=== PATIENT | male | born 1950 | race Caucasian/White ===

== ENCOUNTER 2018-12-01 09:53 | Emergency (ER) | payer MEDICARE ==
--- NOTE | 2018-12-01 10:17 | ED ---
Shortness of Breath - HPI Summary HPI Summary: The patient is a 68 y/o M presenting to [facility] with a chief complaint of sudden onset SOB three days ago. He reports hx of COPD, for which he has a concentrator and nebulizer to which he used them to some relief. Since his symptoms persisted so he presented to [facility] today. There, he was given Dexamethasone 10mg and Duoneb, which improved his symptoms. He additionally c/o a productive cough with clear phlegm. He denies CP and edema. Hx of COPD and respiratory failure. Former smoker, occasional EtOH, no substance use. - History of Current Complaint Chief Complaint: EDShortnessOfBreath Time Seen by Provider: 12/01/18 10:05 Hx Obtained From: Patient Onset/Duration: Sudden Onset, Lasting Days - three, Still Present Timing: Constant Current Severity: Moderate Dyspnea At: Rest Aggravating Factors: Nothing Alleviating Factors: Bronchodilators - Dexamethasone 10mg and Duoneb (at [facility]) Associated Signs & Symptoms: Cough (Productive) - with clear phlegm - Allergy/Home Medications Allergies/Adverse Reactions: Allergies Allergy/AdvReac Type Severity Reaction Status Date / Time codeine AdvReac Vomiting Verified 12/01/18 09:56 Penicillins AdvReac Rash Verified 12/01/18 09:56 PMH/Surg Hx/FS Hx/Imm Hx Endocrine/Hematology History: Denies: Hx Diabetes Cardiovascular History: Denies: Hx Hypertension Respiratory History: Reports: Hx Chronic Obstructive Pulmonary Disease (COPD), Other Respiratory Problems/Disorders - RESPIRATORY FAILURE Musculoskeletal History: Reports: Hx Back Problems - Surgical History Surgical History: None Surgery Procedure, Year, and Place: none - Immunization History Date of Tetanus Vaccine: UNK Date of Influenza Vaccine: 06/21 Infectious Disease History: No Infectious Disease History: Denies: Traveled Outside the [place] in Last 30 Days - Family History Known Family History: Negative: Hypertension, Diabetes - Social History Hx Substance Use: No Substance Use Type: Reports: None Hx Tobacco Use: Yes Smoking Status (MU): Former Smoker Review of Systems Negative: Chest Pain Positive: Shortness Of Breath, Cough - productive with clear phlegm Negative: Edema All Other Systems Reviewed And Are Negative: Yes Physical Exam - Summary Physical Exam Summary: Appearance: Well-appearing, Well-nourished, lying in bed comfortably Skin: Warm, dry, no obvious rash Eyes: sclera anicteric, no conjunctival pallor ENT: mucous membranes moist, pharynx appears normal Neck: Supple, nontender Respiratory: Clear to auscultation, no signs of respiratory distress. Good aeration. No wheezing. Cardiovascular: Normal S1, S2. No murmurs. Normal distal pulses in tibial and radial bilaterally. Abdomen: Soft, nontender, normal active bowel sounds present Musculoskeletal: Normal, Strength/ROM Intact Neurological: A&Ox3, awake and alert, mentation is normal, speech is fluent and appropriate Psychiatric: affect is normal, does not appear anxious or depressed Triage Information Reviewed: Yes Vital Signs On Initial Exam: Initial Vitals Temp Pulse Resp BP Pulse Ox 97.9 F 90 20 180/93 94 12/01/18 09:57 12/01/18 09:57 12/01/18 09:57 12/01/18 09:57 12/01/18 09:57 Vital Signs Reviewed: Yes Diagnostics - Vital Signs Vital Signs Temp Pulse Resp BP Pulse Ox 12/01/18 09:57 97.9 F 90 20 180/93 94 - Laboratory Result Diagrams: 12/01/18 10:26 12/01/18 10:26 Lab Statement: Any lab studies that have been ordered have been reviewed, and results considered in the medical decision making process. - Radiology CXR Radiology Interpretation Completed By: Radiologist Summary of Radiographic Findings: Hyperinflation, consistent with COPD. No active cardiopulmonary disease. ED physician has reviewed this report. - EKG 1020 Cardiac Rate: NL - 86 BPM EKG Rhythm: Sinus Rhythm Summary of EKG Findings: NSR at 86 BPM, P waves, QRS complex, and T waves are within normal limits, T waves and intervals are normal, no ischemic changes. This is a normal EKG. Re-Evaluation - Re-Evaluation First Eval Re-Evaluation Time: 12:56 Change: Improved Comment: The patient's symptoms have improved. We discussed results and discharge home. Course/Dx - Course Course Of Treatment: The patient is a 68 y/o M presenting to [facility] with a chief complaint of sudden onset SOB three days ago without much relief using at-home concentrator and nebulizer for COPD. He was given Dexamethasone 10mg and Duoneb at [facility], which improved his symptoms. He additionally c/o a productive cough with clear phlegm. He denies CP and edema. Hx of COPD and respiratory failure. Former smoker, occasional EtOH, no substance use. Upon physical exam, the patient exhibits good aeration without wheezing. Blood work reveals chloride of 96 and glucose of 136. EKG reveals NSR at 86 BPM without any ischemic changes. CXR impression: Hyperinflation, consistent with COPD. No active cardiopulmonary disease. Since patients symptoms have improved, he is able to be discharged home. He is prescribed Prednisone and Azithromycin. He is diagnosed with COPD exacerbation. He agrees with discharge plan. - Diagnoses Provider Diagnoses: COPD exacerbation Discharge - Sign-Out/Discharge Documenting (check all that apply): Patient Departure - Patient will be discharged home. Patient Received Moderate/Deep Sedation with Procedure: No - Discharge Plan Condition: Good Disposition: HOME Prescriptions: Azithromycin TAB* [Zithromax TAB (Z-MIGUEL ÁNGEL) 250 mg #6 tabs] 2 tab PO .TODAY, THEN 1 DAILY #1 miguel ángel predniSONE TAB* [Deltasone 20 MG TAB*] 40 mg PO DAILY #14 tab Patient Education Materials: COPD (Chronic Obstructive Pulmonary Disease) (ED) Referrals: Miryam Mott MD [Primary Care Provider] - 3 Days Additional Instructions: Follow up with your primary care provider in 2-3 days. RETURN TO THE EMERGENCY DEPARTMENT FOR ANY NEW OR WORSENING SYMPTOMS. - Billing Disposition and Condition Condition: GOOD Disposition: Home - Attestation Statements Document Initiated by Chloé: Yes Documenting Scribe: Harriet Isabel Provider For Whom Chloé is Documenting (Include Credential): Dr. Bryon Nath MD Scribe Attestation: Harriet Carcamo scribed for Dr. Bryon Nath MD on 12/04/18 at 0416. Scribe Documentation Reviewed: Yes Provider Attestation: The documentation as recorded by the Harriet joseph accurately reflects the service I personally performed and the decisions made by me, Dr. Bryon Nath MD Status of Scrdorothy Document: Viewed
[2018-12-01 10:40] LABS: ABS Eosinophils 0.3 10^3/ul (0-0.6); ABS Monocytes 0.5 10^3/ul (0-0.8); ABS Neutrophils 5.1 10^3/ul (1.5-7.7); Eosinophil % 3.7 %; Hematocrit 48 % (42-52); Lymphocyte % 14.7 %; Mean Corpuscular HGB Conc 34 g/dL (31-36); Mean Corpuscular Hemoglobin 31 pg (27-31); Mean Corpuscular Volume 93 fL (80-94); Mean Platelet Volume 8.2 fL (7.4-10.4); Nucleated Red Blood Cells % 0.1; Platelet Count 209 10^3/uL (150-450); Red Cell Distribution Width 13 % (10-15); White Blood Count 6.9 10^3/uL (3.5-10.8)
[2018-12-01 11:03] LABS: Albumin 4.7 g/dL (3.2-5.2); Albumin/Globulin Ratio 1.6 (1-3); BUN/Creatinine Ratio 12.6 (8-20); EGFR African American 105.3 (>60); Potassium 4.1 mmol/L (3.5-5.0); Total Bilirubin 0.5 mg/dL (0.2-1.0); Total Protein 7.7 g/dL (6.4-8.9)
[2018-12-01 12:42] VITALS: BP 150/77
== END 2018-12-01 13:02 | disposition home or self-care (01) ==
LOC: ED 09:53
DX: J44.1 Chronic obstructive pulmonary disease with (acute) exacerbation (principal); Z87.891 Personal history of nicotine dependence
CPT/HCPCS: 36415; 71046; 80053; 84484; 85025; 93005; 99283

== ENCOUNTER 2019-03-10 18:24 | Observation (INO) | payer MEDICARE ==
[2019-03-10] MEDS ORDERED: predniSONE TAB* 20 MG PO ONE (19:09)
[2019-03-10] MEDS ORDERED: Albuterol/Ipratropium NEB.SOL* Albuterol 2.5 MG/Ipratropium 0.5 MG 3 ML INH ONE ×2 (19:09→20:13)
[2019-03-10 19:47] LABS: ABS Basophils 0.1 10^3/ul (0-0.2); ABS Eosinophils 0.7 10^3/ul (0-0.6); ABS Lymphocytes 1.3 10^3/ul (1.0-4.8); ABS Monocytes 0.6 10^3/ul (0-0.8); ABS Neutrophils 3.7 10^3/ul (1.5-7.7); Eosinophil % 10.8 %; Hematocrit 43 % (42-52); Hemoglobin 14.5 g/dL (14.0-18.0); Lymphocyte % 21.3 %; Mean Corpuscular HGB Conc 34 g/dL (31-36); Mean Corpuscular Hemoglobin 33 pg (27-31); Mean Corpuscular Volume 96 fL (80-94); Mean Platelet Volume 7.7 fL (7.4-10.4); Platelet Count 261 10^3/uL (150-450); Red Blood Count 4.46 10^6 /uL (4.18-5.48); Red Cell Distribution Width 14 % (10-15); White Blood Count 6.3 10^3/uL (3.5-10.8)
--- NOTE | 2019-03-10 19:49 | ED ---
Shortness of Breath - HPI Summary HPI Summary: Pt is a 68 y/o M presenting to the ED with a chief complaint of shortness of breath. He states he has COPD, is on 2L O2 at home, and has nebulizer tx, but nothing was alleviating it today. He reports nonproductive cough and chest pain with the SOB that worsens on lying down. He denies fever. - History of Current Complaint Chief Complaint: EDShortnessOfBreath Time Seen by Provider: 03/10/19 19:01 Hx Obtained From: Patient Onset/Duration: Sudden Onset, Lasting Hours, Still Present Timing: Constant Current Severity: Moderate Dyspnea At: Other Aggravating Factors: Other - lying down Alleviating Factors: Nothing Associated Signs & Symptoms: Cough (Nonproductive) - Allergy/Home Medications Allergies/Adverse Reactions: Allergies Allergy/AdvReac Type Severity Reaction Status Date / Time codeine AdvReac Vomiting Verified 03/10/19 19:08 Penicillins AdvReac Rash Verified 03/10/19 19:08 PMH/Surg Hx/FS Hx/Imm Hx Previously Healthy: Yes Endocrine/Hematology History: Denies: Hx Diabetes Cardiovascular History: Denies: Hx Congestive Heart Failure, Hx Hypertension Respiratory History: Reports: Hx Chronic Obstructive Pulmonary Disease (COPD), Other Respiratory Problems/Disorders - RESPIRATORY FAILURE Musculoskeletal History: Reports: Hx Back Problems - Surgical History Surgery Procedure, Year, and Place: none - Immunization History Date of Tetanus Vaccine: UNK Date of Influenza Vaccine: 06/21 Infectious Disease History: No Infectious Disease History: Denies: Traveled Outside the [place] in Last 30 Days - Family History Known Family History: Negative: Hypertension, Diabetes - Social History Alcohol Use: Daily Hx Substance Use: No Substance Use Type: Reports: None Hx Tobacco Use: Yes Smoking Status (MU): Former Smoker Review of Systems Negative: Fever Positive: Chest Pain Positive: Shortness Of Breath, Cough All Other Systems Reviewed And Are Negative: Yes Physical Exam - Summary Physical Exam Summary: Constitutional: Well-developed, Well-nourished, Alert. (-) Distressed. Speaking in full sentences. Skin: Warm, Dry HENT: Normocephalic; Atraumatic Eyes: Conjunctiva normal Neck: Musculoskeletal ROM normal neck. (-) JVD, (-) Stridor, (-) Tracheal deviation Cardio: Rhythm regular, rate normal, Heart sounds normal; Intact distal pulses; Radial pulses are 2+ and symmetric. (-) Murmur Pulmonary/Chest wall: Decreased air entry in all lung g[place], expiratory wheezes , (-) Rales Abd: Soft, (-) tenderness, (-) Distension, (-) Guarding, (-) Rebound Musculoskeletal: (-) Edema Lymph: (-) Cervical adenopathy Neuro: Alert, Oriented x3 Psych: Mood and affect Normal Triage Information Reviewed: Yes Vital Signs On Initial Exam: Initial Vitals Temp Pulse Resp BP Pulse Ox 98.7 F 120 18 165/102 92 03/10/19 18:26 03/10/19 18:26 03/10/19 18:26 03/10/19 18:26 03/10/19 18:26 Vital Signs Reviewed: Yes Procedures - Sedation Patient Received Moderate/Deep Sedation with Procedure: No Diagnostics - Vital Signs Vital Signs Temp Pulse Resp BP Pulse Ox 03/10/19 18:26 98.7 F 120 18 165/102 92 - Laboratory Result Diagrams: 03/10/19 19:38 03/10/19 19:38 Lab Statement: Any lab studies that have been ordered have been reviewed, and results considered in the medical decision making process. - Radiology CXR Radiology Interpretation Completed By: ED Physician Summary of Radiographic Findings: CXR shows hyperinflated lungs without infiltrate. Pending official radiology report. - CT Chest/Thorax CTA CT Interpretation Completed By: Radiologist Summary of CT Findings: 1. No pulmonary emboli. 2. Mild emphysema. ED physician has reviewed this report. - EKG 1904 Cardiac Rate: Tachycardia - 110bpm EKG Rhythm: Sinus Tachycardia ST Segment: Normal Ectopy: None Summary of EKG Findings: EKG at 1904 shows sinus tachycardia at 110bpm with nml axis, nml intervals. No STEMI. Course/Dx - Course Course Of Treatment: Patient is here with a COPD exacerbation. Patient received 2 DuoNeb, 2 g of IV magnesium, and an hour-long albuterol nebulizer treatment with minimal improvement in his symptoms. Patient had an elevated troponin which she's had in the past with no EKG changes. Patient had negative CTA for PE. Patient is admitted to medicine for further management of his COPD and troponin. Patient was also given azithromycin and prednisone here. - Diagnoses Provider Diagnoses: Elevated troponin, Shortness of breath, COPD exacerbation - Physician Notifications Discussed Care of Patient With: Keith Lewis Time Discussed With Above Provider: 22:24 Instructed by Provider To: Admit As Inpatient - Critical Care Time Critical Care Time: 30-74 min Discharge ED - Sign-Out/Discharge Documenting (check all that apply): Patient Departure - Discharge Plan Condition: Stable Disposition: ADMITTED TO [facility] Referrals: Miryam Mott MD [Primary Care Provider] - - Billing Disposition and Condition Condition: STABLE Disposition: Admitted to [facility] - Attestation Statements Document Initiated by Scribe: Yes Documenting Scribe: Mikala Hahn Provider For Whom Beckieibe is Documenting (Include Credential): Mehul Joiner MD. Scribe Attestation: Mikala Carcamo, michaeled for Mehul Joiner MD. on 03/11/19 at 0020. Scribe Documentation Reviewed: Yes Provider Attestation: The documentation as recorded by the beckieibe, Mikala Hahn accurately reflects the service I personally performed and the decisions made by , Mehul Joiner MD. Status of Scribe Document: Viewed
[2019-03-10 20:05] LABS: ALT 14 U/L (7-52); AST 21 U/L (13-39); Albumin 4.3 g/dL (3.2-5.2); Albumin/Globulin Ratio 1.7 (1-3); Alkaline Phosphatase 67 U/L (34-104); Anion Gap 8 mmol/L (2-11); BUN/Creatinine Ratio 6.4 (8-20); Blood Urea Nitrogen 5 mg/dL (6-24); CO2 Carbon Dioxide 27 mmol/L (22-32); Calcium 9.4 mg/dL (8.6-10.3); Chloride 102 mmol/L (101-111); EGFR African American 119.4 (>60); EGFR Non-African American 98.7 (>60); Globulin 2.6 g/dL (2-4); Glucose 121 mg/dL (70-100); Potassium 4.1 mmol/L (3.5-5.0); Sodium 137 mmol/L (135-145); Total Protein 6.9 g/dL (6.4-8.9)
[2019-03-10 20:10] LABS: Troponin I 0.06 ng/mL (<0.04)
[2019-03-10] MEDS ORDERED: Iohexol 350* (CONTRAST) 500 ML MDV IV ONE (20:18)
[2019-03-10] MEDS ORDERED: Azithromycin 500 mg/250 ml NS 500 MG/250 ML BAG IVPB ONE (21:10)
[2019-03-10] MEDS ORDERED: Albuterol 0.5% CONC NEB.SOL* 5 MG/ML 20 ml BOT INH ONE (21:28)
[2019-03-10] MEDS ORDERED: Magnesium Sulfate 2 GM IV* 2 GM/50 ML BAG IVPB ONE (21:32)
[2019-03-10] MEDS ORDERED: Aspirin 81 mg CHEW TAB* 81 MG TAB.CHEW PO ONE (22:06)
[2019-03-10 22:25] LABS: Troponin I 0.07 ng/mL (<0.04)
[2019-03-11] MEDS ORDERED: Ipratropium 0.5MG/2.5ML NEB* 0.5 MG/2.5 ML NEB.SOLN INH PRN (04:14)
[2019-03-11] MEDS ORDERED: Albuterol 2.5 MG/3 ML NEB.SOL* (0.083%) INH PRN (04:14)
[2019-03-11 04:29] LABS: Troponin I 0.04 ng/mL (<0.04)
[2019-03-11] MEDS: Enoxaparin(*) 40 MG/0.4 ML SYR SUBCUT SCH (05:15)
[2019-03-11 06:40] LABS: ABS Lymphocytes 0.6 10^3/ul (1.0-4.8); ABS Monocytes 0.3 10^3/ul (0-0.8); ABS Neutrophils 4.4 10^3/ul (1.5-7.7); Hematocrit 40 % (42-52); Hemoglobin 13.8 g/dL (14.0-18.0); Lymphocyte % 11.9 %; Mean Corpuscular HGB Conc 34 g/dL (31-36); Mean Corpuscular Hemoglobin 33 pg (27-31); Mean Corpuscular Volume 96 fL (80-94); Mean Platelet Volume 7.8 fL (7.4-10.4); Nucleated Red Blood Cells % 0.1; Platelet Count 238 10^3/uL (150-450); Red Blood Count 4.21 10^6 /uL (4.18-5.48); Red Cell Distribution Width 14 % (10-15); White Blood Count 5.3 10^3/uL (3.5-10.8)
[2019-03-11 06:58] LABS: BUN/Creatinine Ratio 10.4 (8-20); Calcium 9.1 mg/dL (8.6-10.3); EGFR African American 121.2 (>60); EGFR Non-African American 100.2 (>60); HDL Cholesterol 70.8 mg/dL; Potassium 4.6 mmol/L (3.5-5.0)
[2019-03-11] MEDS: Mometasone/Formoter 200/5 MDI INH SCH ×2 (08:52→20:18)
[2019-03-11] MEDS: Carvedilol TAB* 6.25 MG PO SCH ×2 (08:53→20:53)
[2019-03-11] MEDS: Aspirin EC TAB* 81 MG TAB.EC PO SCH (08:53)
[2019-03-11] MEDS: Atorvastatin* 40 MG TAB PO SCH (08:53)
[2019-03-11] MEDS ORDERED: predniSONE TAB* 20 MG PO SCH (09:00)
--- NOTE | 2019-03-11 10:56 | HP ---
CC: Dr. Miryam Mott ADMISSION HISTORY AND PHYSICAL: DATE OF ADMISSION: 03/11/19 PRIMARY CARE PHYSICIAN: Miryam Mott MD TEARER PRESS CLIPPING: Imelda Haq NP CHIEF COMPLAINT: Shortness of breath. HISTORY OF PRESENT ILLNESS: This is a 68-year-old male with past medical history of COPD; history of alcohol abuse, but cut down quite drastically; history of intubation in 2009 and 2012 for his respir atory failure, which he says was possibly even a cardiac arrest, but it sounds more like a respirator y arrest; history of nonischemic cardiomyopathy with low EF of 20% based on an echocardiogram from 28 05; comes in with shortness of breath and cough. The patient stated that he was in his usual state o f health up until yesterday, he had a coughing spell and he was using his nebulizer machine, but stil l felt very short of breath, so he came into the ER for treatment of his COPD. He states that usuall y he just gets his treatment for COPD in the ER and usually gets better. Even today, he feels that h e is back to his baseline; however, he did have minimally elevated troponin, so the ER physician ted mmended him to stay for evaluation by a tax specialist. He otherwise denies any chest pain at this poi nt, stated that he did have some chest pain, but only from coughing; otherwise had some shortness of breath, which was his chief complaint, which was worse with lying down or any activity. He was havin g some dry cough, stated that it feels like there is something stuck in his chest. Denies any other fever, chills, nausea, vomiting, diarrhea. PAST MEDICAL HISTORY: As mentioned, COPD, on 2 L nasal cannula, also has a nebulizer machine at home , but has been noncompliant with his Symbicort as it is way too expensive for him. He has also had i ntubations in 2009 and 2012 for respiratory failure, possibly even a cardiac arrest in 2009. He also has a history of hypertension; hyperlipidemia, for which he takes medication; previous history of al cohol abuse and smoking and vaping. He has stopped completely with the smoking and vaping; however, he still drinks on a routine basis about 2 to 4 beers, which he initially states was daily. He has a lso had a cardiomyopathy with a previous EF documented in the chart of 20% and stated that he had an echocardiogram done in November of this year at the tax specialist office; however, I am unable to obtain jacey jimenez records. PAST SURGICAL HISTORY: He has had lower back surgery and cardiac catheterization, which were apparen tly normal. HOME MEDICATIONS: The patient is currently on: 1. Carvedilol 6.25 mg p.o. b.i.d. 2. Crestor 20 mg p.o. daily. 3. Atrovent 0.5 mg by inhalation q.4 hours p.r.n. 4. Albuterol q.6 hours p.r.n. shortness of breath. 5. Symbicort 2 puffs by inhalation b.i.d.; however, he is not compliant with this. 6. Aspirin 81 mg oral daily. ALLERGIES: The patient is allergic to PENICILLIN and CODEINE, which cause unknown reaction. FAMILY HISTORY: Noncontributory at his age of 68. SOCIAL HISTORY: He has had over [id number] history of smoking, followed by a few- year history of vaping, followed by history of drinking almost 6 pack of beers a day, but the patient has stopped smo hammad for roughly 10 years, vaping for roughly 7 to 8 years, and cut down his alcohol use to intermitt ently about 2 to 4 beers a day or every other day. He states that there are days that he does not dr ink alcohol at all. 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 He lives alone. He is otherwise full cod e and stated that Alejandrina, his daughter, would be his surrogate decision-maker if necessary. REVIEW OF SYSTEMS: A 14-point review of systems did not reveal any new information other than the on es stated in the HPI. PHYSICAL EXAMINATION GENERAL: The patient is awake, alert and oriented x3, does not appear to be in any acute respiratory distress. VITAL SIGNS: In the ER, BP was noted to be 136/60, heart rate 104, respiration rate 18, saturating 9 7% on 2 L nasal cannula, temperature was noted to be 98.7. HEAD AND NECK: Atraumatic and normocephalic. Bilateral pupils are reactive. Oral mucosa was moist. NECK: Supple. No jugular venous distention. LUNGS: The patient had diffuse wheezing. HEART: S1, S2. Regular rate and rhythm. ABDOMEN: Soft, nontender, and nondistended. EXTREMITIES: No cyanosis, clubbing, or edema. DIAGNOSTIC STUDIES/LAB DATA: CBC was within normal limits. VBG shows pH of 7.40 and oxygen saturat ion of 87%. Comprehensive metabolic panel was unremarkable except for minimally elevated troponin at 0.06, which was repeated again and was elevated at 0.07. CTA of the chest was showing no pulmonary emboli, mild emphysema; and the heart, there is mild atherosclerotic calcification of the coronaries. EKG showed sinus tachycardia at 110 beats per minute without any ST elevation. There is some ST de pression in the lead aVF and some T-wave inversion in aVL. When compared to his older EKG from November 2018, there was no significant change between the two except for his heart rate was much lower back t hen. IMPRESSION: This is a 68-year-old male with history of nonischemic cardiomyopathy, comes in with clover rtness of breath secondary to chronic obstructive pulmonary disease exacerbation, clinically improved , but still has minimally elevated troponin. ASSESSMENT: 1. Hypoxic respiratory failure secondary to chronic obstructive pulmonary disease exacerbation, impr raymond with steroids. We will continue with oral steroids and nebulization. 2. Elevated troponin. The patient did recently have an echocardiogram, so there is no point in repe ating. We will consult tax specialist to evaluate the patient and see if the patient would benefit fro m any stress test versus cardiac cath. He did state that his previous cardiac cath was always clean. We will also see if we can obtain records from cardiology clinic for further details. 3. History of hypertension. Restart home medications. We will try to titrate his antihypertensives during this hospitalization. 4. History of dyslipidemia. Check a lipid panel. We will also check an A1c as he has some elevated random glucose. 5. DVT prophylaxis with Lovenox. 6. Code status. Full code. [id number]/[facility] #: [id number]
[2019-03-11] MEDS ORDERED: Benzonatate CAP* 100 MG PO PRN (11:13)
[2019-03-11] MEDS: Albuterol/Ipratropium NEB.SOL* Albuterol 2.5 MG/Ipratropium 0.5 MG 3 ML INH SCH ×3 (11:16→20:18)
--- NOTE | 2019-03-11 12:20 | CONS ---
CC: Imelda Haq NP; Dr. Irby; Dr. Miryam Mott CARDIOLOGY CONSULTATION: DATE OF CONSULT: 03/11/19 REFERRING PHYSICIAN: Dr. Keith Lewis. REASON FOR CARDIOLOGY CONSULTATION: Shortness of breath and elevated troponin. HISTORY OF PRESENT ILLNESS: Mr. Gonzalez is a 68-year-old gentleman admitted to the hospital last night with COPD exacerbation. He was found to have elevated troponin to 0.07 with followup troponin 0.04, 0.03, and 0.03. He himself denies angina and states he is feeling back to normal now since treatment for his COPD. Past cardiac history is unknown, but he does follow with Ms. Haq in our office. The patient denies prior cardiac surgery or stent. The patient states he saw Ms. Haq in our office in December 2018. PAST MEDICAL HISTORY: Other past medical history includes COPD, hyperlipidemia. OUTPATIENT MEDICATIONS: 1. Lipitor 40 mg once a day. 2. Coreg 6.25 mg p.o. b.i.d. 3. Prednisone as directed. ALLERGIES TO MEDICATIONS: PENICILLIN and CODEINE. He denies shrimp, sea food or dye allergy. FAMILY HISTORY: Denies prior cardiac disease, stroke, diabetes, or cancer. SOCIAL HISTORY: He quit smoking cigarettes in September 2018 after having smoked for 50 years 1 pack per day or less. He drank 3 to 4 cans of beer per night, but has stopped drinking beer for the past 2 months. He does not use illicit drugs. He is single and lives alone. 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 He does try to stay active walking [place] and riding his bicycle. REVIEW OF SYSTEMS: The patient denies personal history of stroke, cancer, vomiting up blood, coughing up blood, bright red blood per rectum, bleeding stomach ulcers, renal calculi, cholelithiasis, asthma. He has COPD and uses home O2 p.r.n. He denies pneumonia, tuberculosis, sleep apnea, diabetes, hypertension, prior [place], congestive heart failure, or cardiac surgery. He was told he had a heart murmur as a child. He denies palpitations, denies psychiatric illnesses, lupus, psoriasis, seizures, Parkinson's disease, myasthenia gravis, thyroid disorders, liver disorders, kidney disorders, claudication symptoms. He does have occasional GERD depending on what he eats. He denies pulmonary emboli, deep venous thrombosis, or peripheral arterial disease. Denies peripheral edema. Other review of systems are negative x14 except as per this documentation. PHYSICAL EXAM: Height 5 feet 10 inches, weight 131 pounds, temperature 97.7 degrees Fahrenheit, pulses ranging from 98 to 112, O2 saturation 96% to 100%, blood pressure 153/69. On general exam, he is a pleasant, emphysematous- appearing gentleman in no acute distress. HEENT shows the cranium is normocephalic and atraumatic. He has dry mucosal membranes. Neck veins are not distended. There are no carotid bruits. Visible skin warm and perfused. Affect appropriate. He appears oriented. No significant kyphoscoliosis on back exam. Lungs reveal occasional rhonchi bilaterally. No clear wheezing. Cardiac Exam: S1, S2. Regular rate. No significant murmurs, rubs, or gallops. PMI is nondisplaced. Abdomen: Soft and nondistended, appears benign. Extremities without significant edema. Pulses appear grossly intact. DIAGNOSTIC STUDIES/LAB DATA: A 12-lead EKG is reviewed, which shows sinus tachycardia around 10 beats a minute with left anterior fascicular block. RSR prime in V1 and nonspecific T wave changes in the anterolateral leads. Sodium 138, potassium 4.6, chloride 102, bicarbonate 28, BUN 8, creatinine 0.77. Troponin 0.07, followed by 0.04, followed by 0.03, followed by 0.03. White blood cell count 5.3, hematocrit 40, platelet count 238. IMPRESSION: Mr. Gonzalez is a pleasant 68-year-old gentleman admitted with chronic obstructive pulmonary disease exacerbation and found to have minimal troponin elevation with no findings of acute coronary syndrome including no angina. Currently, he is feeling better and there is some rhonchi noted on exam. RECOMMENDATIONS: 1. I think it is reasonable for now to check transthoracic echocardiogram, and if LV function preserved, can discharge the patient cardiac-sotelo on home aspirin , statin, and Coreg and early followup with our office with his [facility], Imelda Haq for consideration of outpatient stress test. 2. Other management including for the COPD as per the hospitalist medicine service. Dear Dr. Lewis, many thanks for asking me to participate in the cardiovascular consultative care of Mr. Gonzalez. I have discussed the case with him and he seems agreeable to these recommendations. Please do not hesitate to contact me if you have any questions or concerns regarding the patient's cardiovascular consultative care. [id number]/[facility] #: [id number] ISAMAR
--- NOTE | 2019-03-11 18:48 | PN ---
Subjective Date of Service: 03/11/19 Interval History: SOB improved with nebulizer treatment. Non productive cough heard. No fever. chills overnight. Objective Active Medications: Albuterol/Ipratropium (Duoneb (Albuterol 2.5 Mg/Ipratropium 0.5 Mg)) 1 neb INH Q4H [facility] Last Admin: 03/11/19 14:34 Dose: 1 neb Aspirin (Aspirin Ec Tab*) 81 mg PO DAILY [facility] Last Admin: 03/11/19 08:53 Dose: 81 mg Atorvastatin Calcium (Lipitor*) 40 mg PO DAILY [facility] Last Admin: 03/11/19 08:53 Dose: 40 mg Benzonatate (Tessalon Cap*) 100 mg PO BID PRN PRN Reason: SHORTNESS OF BREATH Last Admin: 03/11/19 13:38 Dose: 100 mg Carvedilol (Coreg Tab*) 6.25 mg PO BID [facility] Last Admin: 03/11/19 08:53 Dose: 6.25 mg Enoxaparin Sodium (Lovenox(*)) 40 mg SUBCUT 0900 [facility] Last Admin: 03/11/19 05:15 Dose: 40 mg Mometasone Furoate/Formoterol Fumar (Dulera 200/5 Mdi*) 2 puff INH BID [facility]; Protocol Last Admin: 03/11/19 08:52 Dose: 2 puff Prednisone (Deltasone Tab*) 40 mg PO DAILY [facility] Stop: 03/15/19 08:59 Vital Signs - 8 hr 03/11/19 03/11/19 03/11/19 11:11 14:37 15:15 Temperature 98.4 F 97.8 F Pulse Rate 99 102 96 Respiratory 16 16 18 Rate Blood Pressure 153/69 133/55 (mmHg) O2 Sat by Pulse 99 98 94 Oximetry Oxygen Devices in Use Now: Nasal Cannula Exam: Appearance: not in acute distress, but appears uncomfortable Eyes: No Scleral Icterus Ears/Nose/Mouth/Throat: NL Teeth, Lips, Gums Neck: NL Appearance and Movements; NL JVP Respiratory: diffuse wheezing sound over lung, no crackles heard Cardiovascular: RRR, no murmur Abdominal: soft, non tender Lymphatic: No Cervical Adenopathy Extremities: No Edema Result Diagrams: 03/11/19 06:29 03/11/19 06:29 Assess/Plan/Problems-Billing Assessment: 68 y/o male with history of cardiomyopathy, COPD on 2L O2, presented with worsening SOB for 3 days, with clear CXR and no leukocytosis, likely COPD exacerbation. - Patient Problems (1) COPD exacerbation Current Visit: Yes Status: Acute Code(s): J44.1 - CHRONIC OBSTRUCTIVE PULMONARY DISEASE W (ACUTE) EXACERBATION SNOMED Code(s): 368737468 Comment: - evidenced by O2 requirement and wheezing sound, no obvious infection found - pred 40mg for 3 days - continue nebulizer - walk patient today, check O2 during ambulation (2) Elevated troponin Current Visit: Yes Status: Acute Code(s): R74.8 - ABNORMAL LEVELS OF OTHER SERUM ENZYMES SNOMED Code(s): 013153521 Comment: - peaked yesterday at 0.07 - EKG new T wave inversion V1-V3 - appreciate cardiology consult - repeat ekg today - not likely ACS (3) Cardiomyopathy Current Visit: Yes Status: Acute Code(s): I42.9 - CARDIOMYOPATHY, UNSPECIFIED SNOMED Code(s): 74561923 Comment: - not CHF excerbation, BNp normal - echo record in Jul, 2018, EF 50-55%, no WMA - outpatient follow up (4) DVT prophylaxis Current Visit: Yes Status: Acute Code(s): Z29.9 - ENCOUNTER FOR PROPHYLACTIC MEASURES, UNSPECIFIED SNOMED Code(s): 979312226 Comment: sc lovenox Status and Disposition: Inpatient Medicine. Discharge if O2 requirement back to baseline Attestation Documenting Resident: Joselin Chen Supervising Physician: Jorge L Mott Attending/Supervising Physician Comment: Agree with plan as outlined in Dr. Oliver note from today unless indicated here. 65M h/o COPD a/w SOB improving on steroids. Repeat TTE in 07/2018 with recovered LVEF 50-55% EKG with TWI on presentation now resolved with normalized troponin suspected type II NSTEMI SOB improving - suspect COPD exacerbation Attestation: This service has been performed in part by a resident under the direction of a teaching physician.I, Jorge L oMtt, performed the service, or was physically present during the critical, or ribeiro portions of the service, furnished by the resident. I participated in the management of the patient.
[2019-03-11] MEDS ORDERED: Albuterol/Ipratropium NEB.SOL* Albuterol 2.5 MG/Ipratropium 0.5 MG 3 ML INH PRN (20:25)
[2019-03-12] MEDS: Albuterol/Ipratropium NEB.SOL* Albuterol 2.5 MG/Ipratropium 0.5 MG 3 ML INH SCH ×3 (01:35→13:44)
[2019-03-12] MEDS: Mometasone/Formoter 200/5 MDI INH SCH (08:23)
[2019-03-12] MEDS ORDERED: predniSONE TAB* 20 MG PO SCH (09:00)
[2019-03-12] MEDS ORDERED: guaiFENesin ER TAB 600 MG PO SCH (09:00)
--- NOTE | 2019-03-12 09:01 | PN ---
Hospitalist Progress Note Date of Service: 03/12/19 Pt had runny nose and cough (like it usually is). SOB back to normal. waiting for echo (wants to leave before 11am) no overnight virals- 97.5 heart-91 resp-22 o2 sat-98 on 2 o2 flow rate (8:26) BP-152/66 no new labs
[2019-03-12] MEDS: Enoxaparin(*) 40 MG/0.4 ML SYR SUBCUT SCH (10:44)
[2019-03-12] MEDS: Atorvastatin* 40 MG TAB PO SCH (10:44)
[2019-03-12] MEDS: Carvedilol TAB* 6.25 MG PO SCH (10:44)
[2019-03-12] MEDS: Aspirin EC TAB* 81 MG TAB.EC PO SCH (10:44)
[2019-03-12 13:33] VITALS: BP 137/59
--- NOTE | 2019-03-13 01:01 | DS ---
CC: Dr. Miryam Mott, [facility] * DISCHARGE SUMMARY: DATE OF ADMISSION: 03/11/19 DATE OF DISCHARGE: 03/12/19 DISPOSITION ON DISCHARGE: Home. CONDITION ON DISCHARGE: Good. PRIMARY DIAGNOSES: 1. COPD exacerbation. 2. Prediabetes. SECONDARY DIAGNOSES: Include: 1. Hypertension. 2. Hyperlipidemia. 3. History of alcohol abuse and tobacco abuse. 4. History of cardiomyopathy. 5. Heart failure with preserved ejection fraction. Last known EF in July 2018 is 50%. MEDICATIONS ON DISCHARGE: 1. Carvedilol 6.25 mg twice daily. 2. Rosuvastatin 20 mg daily. 3. Atrovent 0.5 mg inhaled every 4 hours as needed. 4. Symbicort 160/4.5 two puffs twice daily. 5. Aspirin 81 mg daily. 6. Albuterol 2.5 mg inhaled every 6 hours as needed. 7. Prednisone 50 mg daily for 3 additional days. 8. Guaifenesin. PERTINENT IMAGING STUDIES DURING THE HOSPITAL STAY: CT of the chest and thorax , impression: No pulmonary emboli. Mild emphysema. PERTINENT LABORATORY DATA: Includes: 1. Cholesterol of 201, LDL of 122, HDL of 70, which is fasting. 2. Hemoglobin A1c is 5.8. HISTORY OF PRESENT ILLNESS AND HOSPITAL COURSE: This is a 68-year-old man with past medical history of COPD, uses 2 L at rest; but not when ambulating, presented to the hospital with increased cough and shortness of breath, thought to be suffering from a COPD exacerbation and was started on IV steroids in the emergency room, transitioned to oral steroids, and quickly improved. On the day of discharge, he ambulated around the unit without oxygen and maintained 96 % saturation. He does not likely need oxygen at rest or with ambulation based on our ambulatory test during this hospital stay. There were no complications during this course of the hospital stay. The patient indicates that he does not drink heavily, only up to 2 glasses of wine per day, although some conflicting records do indicate his drinking up to 6 beers per day; he heavily declines and denies this. The patient was noted to have an elevated troponin at 0.07 on the day of presentation, which trended down. He was always chest pain free. EKG did note T-wave inversion in V2 and biphasic T waves in V3 that were new from prior; repeat normalized the day after admission. At followup, please: 1. Encouraged diet and exercise and/or initiation of medication for prediabetes. 2. Continue to encourage smoking cessation; the patient is not actively smoking or vaping according to the patient, as well as alcohol cessation. 3. Evaluate for complete resolution of COPD exacerbation after finishing course of steroids. On the day of discharge, the patient's lungs were clear, although did have diminished breath sounds throughout and was on room air when ambulating at 96% saturation. Reasons to return to the hospital including but not limited to recurrent or worsening symptoms, shortness of breath, chest pain, fevers, chills, night sweats, loss of consciousness, near loss of consciousness, bleeding from any source, or inability to obtain or tolerate medication were discussed with the patient. He acknowledged understanding. TIME SPENT: Greater than 45 minutes was spent on the discharge of this patient , greater than half was spent [id number] with the patient. [id number]/CPS #: [id number] MTDD
== END 2019-03-12 16:20 | disposition home or self-care (01) ==
LOC: ED 18:24 → MEDTELE 03-11 04:09
PROVIDERS: ADMIT Internal Medicine; ATTEND Internal Medicine
DX: J44.1 Chronic obstructive pulmonary disease with (acute) exacerbation (principal); R73.03 Prediabetes; E78.5 Hyperlipidemia, unspecified; I11.0 Hypertensive heart disease with heart failure; I50.30 Unspecified diastolic (congestive) heart failure; R06.02 Shortness of breath; R05 Cough; Z88.0 Allergy status to penicillin; Z87.891 Personal history of nicotine dependence; F10.21 Alcohol dependence, in remission; R07.9 Chest pain, unspecified; R74.8 Abnormal levels of other serum enzymes; I42.9 Cardiomyopathy, unspecified; Z79.899 Other long term (current) drug therapy; R94.31 Abnormal electrocardiogram [ECG] [EKG]; Z79.82 Long term (current) use of aspirin
CPT/HCPCS: 36415; 71045; 71275; 80048; 80053; 80061; 82803; 83036; 83880; 84484; 85025; 93005; 94640; 96365; 96372; 96375; 99285; A9270-GY; G0378; J0456; J1650; J3475; J7512; J7611; Q9967

== ENCOUNTER 2019-04-05 00:24 | Inpatient (IN) | payer MEDICARE ==
[2019-04-05] MEDS ORDERED: Propofol* 100 ML IV ONE (00:25)
[2019-04-05] MEDS ORDERED: NS 0.9% 1000 ML** 1,000 ML IV ONE ×2 (00:26→02:51)
[2019-04-05] MEDS ORDERED: Albuterol/Ipratropium NEB.SOL* Albuterol 2.5 MG/Ipratropium 0.5 MG 3 ML INH ONE ×3 (00:41→00:42)
[2019-04-05] MEDS ORDERED: methylPREDNISolone 125 MG* 2 ML VIAL IV ONE (00:42)
[2019-04-05 00:44] LABS: ABS Basophils 0.1 10^3/ul (0-0.2); ABS Eosinophils 0.5 10^3/ul (0-0.6); ABS Monocytes 0.4 10^3/ul (0-0.8); ABS Neutrophils 6.7 10^3/ul (1.5-7.7); Eosinophil % 5.6 %; Hematocrit 41 % (42-52); Hemoglobin 13.6 g/dL (14.0-18.0); Mean Corpuscular HGB Conc 33 g/dL (31-36); Mean Corpuscular Hemoglobin 32 pg (27-31); Mean Corpuscular Volume 98 fL (80-94); Mean Platelet Volume 8.3 fL (7.4-10.4); Platelet Count 235 10^3/uL (150-450); Red Blood Count 4.22 10^6 /uL (4.18-5.48); Red Cell Distribution Width 13 % (10-15); White Blood Count 9.7 10^3/uL (3.5-10.8)
[2019-04-05 00:49] LABS: INR 0.94 (0.82-1.09)
[2019-04-05 01:02] LABS: ALT 19 U/L (7-52); Albumin 3.6 g/dL (3.2-5.2); Albumin/Globulin Ratio 1.6 (1-3); Alkaline Phosphatase 65 U/L (34-104); BUN/Creatinine Ratio 6.7 (8-20); Blood Urea Nitrogen 6 mg/dL (6-24); CO2 Carbon Dioxide 27 mmol/L (22-32); Calcium 7.9 mg/dL (8.6-10.3); Chloride 104 mmol/L (101-111); EGFR African American 101.2 (>60); EGFR Non-African American 83.7 (>60); Globulin 2.2 g/dL (2-4); Glucose 255 mg/dL (70-100); Sodium 137 mmol/L (135-145); Total Protein 5.8 g/dL (6.4-8.9)
[2019-04-05 01:03] LABS: Troponin I 0.01 ng/mL (<0.04)
--- NOTE | 2019-04-05 01:09 | ED ---
Respiratory - HPI Summary HPI Summary: Pt is a 68 y/o M presenting to the ED brought in by EMS for respiratory distress. LEVEL 5 CAVEAT: Pts full hx and physical is limited d/t intubation/ decreased level of consciousness. Per EMS, the pt called EMS, and the only information he gave them was that he is on oxygen at home, has been intubated in the past, and that he was allergic to penicillin. EMS gave 20mg Etomidate, 9mg Versed, intubated the pt with size 7 tube, and gave 1 duoneb. He has received 500cc of fluids. - History of Current Complaint Stated Complaint: RESPIRATORY DISTRESS PER EMS Time Seen by Provider: 04/05/19 00:25 Hx Obtained From: EMS Hx From Patient Unobtainable Due To: Other - intubated/unconscious Onset/Duration: Sudden Onset, Lasting Hours, Still Present Timing: Constant Pain Intensity: 0 Alleviating Factor(s): Nothing Associated Signs and Symptoms: SOB - Allergy/Home Medications Allergies/Adverse Reactions: Allergies Allergy/AdvReac Type Severity Reaction Status Date / Time codeine AdvReac Vomiting Verified 03/10/19 19:08 Penicillins AdvReac Rash Verified 03/10/19 19:08 PMH/Surg Hx/FS Hx/Imm Hx Previously Healthy: No - LEVEL 5 CAVEAT: Pt's full hx and physical unobtainable d/t intubation Endocrine/Hematology History: Denies: Hx Diabetes Cardiovascular History: Denies: Hx Congestive Heart Failure, Hx Hypertension Respiratory History: Reports: Hx Chronic Obstructive Pulmonary Disease (COPD), Other Respiratory Problems/Disorders - RESPIRATORY FAILURE Musculoskeletal History: Reports: Hx Back Problems Sensory History: Denies: Hx Contacts or Glasses, Hx Hearing Aid Opthamlomology History: Denies: Hx Contacts or Glasses - Surgical History Surgery Procedure, Year, and Place: none - Immunization History Date of Tetanus Vaccine: UNK Date of Influenza Vaccine: 06/21 Infectious Disease History: Unable to Obtain/Confirm Infectious Disease History: Denies: Traveled Outside the [place] in Last 30 Days - [place] - Family History Known Family History: Negative: Hypertension, Diabetes - Social History Alcohol Use: Weekly Hx Substance Use: No Substance Use Type: Reports: None Hx Tobacco Use: Yes Smoking Status (MU): Former Smoker Review of Systems - ROS Summary Review of Systems Summary: LEVEL 5 CAVEAT: Pt's full hx and physical limited d/t intubation/decreased level of consciousness. Home Medications Medication Instructions Recorded Confirmed Type Albuterol 2.5MG/3ML (0.083%)* 2.5 mg INH Q6H PRN 12/01/18 03/10/19 History [Ventolin 2.5 MG/3 ML NEB.SUE*] Aspirin EC TAB* [Ecotrin EC Low 81 mg PO DAILY 12/01/18 03/10/19 History Dose 81 MG*] Budesonide/Formote 160/4.5(NF) 2 puff INH BID 12/01/18 03/10/19 History [Symbicort 160/4.5 (NF)] Ipratropium 0.5MG/2.5ML NEB* 0.5 mg INH Q4H PRN 12/01/18 03/10/19 History [Atrovent 0.5 MG NEB.SUE*] Rosuvastatin (NF) [Crestor (NF)] 20 mg PO DAILY 12/01/18 03/10/19 History Carvedilol 6.25 mg PO BID 03/11/19 03/11/19 History guaiFENesin [Expectorant] 100 mg PO Q6H #1 bottle 03/12/19 Rx predniSONE TAB* [Deltasone TAB*] 50 mg PO DAILY #3 tab 03/12/19 Rx Positive: Shortness Of Breath All Other Systems Reviewed And Are Negative: No Physical Exam Triage Information Reviewed: Yes Vital Signs On Initial Exam: Initial Vitals Temp Pulse Resp BP Pulse Ox 97.5 F 92 14 150/90 100 04/05/19 00:26 04/05/19 00:26 04/05/19 00:26 04/05/19 00:26 04/05/19 00:26 Vital Signs Reviewed: Yes Completion Of Physical Exam Limited Due To: Level 5 Procedures - Sedation Patient Received Moderate/Deep Sedation with Procedure: No Diagnostics - Vital Signs Vital Signs Temp Pulse Resp BP Pulse Ox 04/05/19 00:26 97.5 F 92 14 150/90 100 - Laboratory Lab Results: Lab Results 04/05/19 04/05/19 04/05/19 Range/Units 00:30 00:30 00:30 WBC 9.7 (3.5-10.8) 10^3/uL RBC 4.22 (4.18-5.48) 10^6 /uL Hgb 13.6 L (14.0-18.0) g/dL Hct 41 L (42-52) % MCV 98 H (80-94) fL MCH 32 H (27-31) pg MCHC 33 (31-36) g/dL RDW 13 (10-15) % Plt Count 235 (150-450) 10^3/uL MPV 8.3 (7.4-10.4) fL Neut % (Auto) 68.6 % Lymph % (Auto) 21.0 % [place] % (Auto) 4.2 % Eos % (Auto) 5.6 % Baso % (Auto) 0.6 % Absolute Neuts (auto) 6.7 (1.5-7.7) 10^3/ul Absolute Lymphs (auto) 2.0 (1.0-4.8) 10^3/ul Absolute Monos (auto) 0.4 (0-0.8) 10^3/ul Absolute Eos (auto) 0.5 (0-0.6) 10^3/ul Absolute Basos (auto) 0.1 (0-0.2) 10^3/ul Absolute Nucleated RBC 0.0 10^3/ul Nucleated RBC % 0.0 INR (Anticoag Therapy) 0.94 (0.82-1.09) Sodium 137 (135-145) mmol/L Potassium Pending Chloride 104 (101-111) mmol/L Carbon Dioxide 27 (22-32) mmol/L Anion Gap Pending BUN 6 (6-24) mg/dL Creatinine 0.90 (0.67-1.17) mg/dL Est GFR ( Amer) 101.2 (>60) Est GFR (Non-Af Amer) 83.7 (>60) BUN/Creatinine Ratio 6.7 L (8-20) Glucose 255 H (70-100) mg/dL Lactic Acid (0.5-2.0) mmol/L Calcium 7.9 L (8.6-10.3) mg/dL Total Bilirubin 0.30 (0.2-1.0) mg/dL AST Pending ALT 19 (7-52) U/L Alkaline Phosphatase 65 (34-104) U/L Troponin I 0.01 (<0.04) ng/mL B-Natriuretic Peptide (<=100) pg/mL Total Protein 5.8 L (6.4-8.9) g/dL Albumin 3.6 (3.2-5.2) g/dL Globulin 2.2 (2-4) g/dL Albumin/Globulin Ratio 1.6 (1-3) 04/05/19 04/05/19 Range/Units 00:30 00:30 WBC (3.5-10.8) 10^3/uL RBC (4.18-5.48) 10^6 /uL Hgb (14.0-18.0) g/dL Hct (42-52) % MCV (80-94) fL MCH (27-31) pg MCHC (31-36) g/dL RDW (10-15) % Plt Count (150-450) 10^3/uL MPV (7.4-10.4) fL Neut % (Auto) % Lymph % (Auto) % [place] % (Auto) % Eos % (Auto) % Baso % (Auto) % Absolute Neuts (auto) (1.5-7.7) 10^3/ul Absolute Lymphs (auto) (1.0-4.8) 10^3/ul Absolute Monos (auto) (0-0.8) 10^3/ul Absolute Eos (auto) (0-0.6) 10^3/ul Absolute Basos (auto) (0-0.2) 10^3/ul Absolute Nucleated RBC 10^3/ul Nucleated RBC % INR (Anticoag Therapy) (0.82-1.09) Sodium (135-145) mmol/L Potassium Chloride (101-111) mmol/L Carbon Dioxide (22-32) mmol/L Anion Gap BUN (6-24) mg/dL Creatinine (0.67-1.17) mg/dL Est GFR ( Amer) (>60) Est GFR (Non-Af Amer) (>60) BUN/Creatinine Ratio (8-20) Glucose (70-100) mg/dL Lactic Acid 1.9 (0.5-2.0) mmol/L Calcium (8.6-10.3) mg/dL Total Bilirubin (0.2-1.0) mg/dL AST ALT (7-52) U/L Alkaline Phosphatase (34-104) U/L Troponin I (<0.04) ng/mL B-Natriuretic Peptide 105 H (<=100) pg/mL Total Protein (6.4-8.9) g/dL Albumin (3.2-5.2) g/dL Globulin (2-4) g/dL Albumin/Globulin Ratio (1-3) Result Diagrams: 04/05/19 04:35 04/05/19 04:35 Lab Statement: Any lab studies that have been ordered have been reviewed, and results considered in the medical decision making process. - Radiology CXR Radiology Interpretation Completed By: ED Physician Summary of Radiographic Findings: ET tube above the lida. No obvious infiltrate or pleural effusion. Pending official radiology report. - EKG 0003 Cardiac Rate: NL - 89bpm EKG Rhythm: Sinus Rhythm ST Segment: Normal Ectopy: None Summary of EKG Findings: EKG at 0033 reveals normal sinus rhythm with rate of 89 BPM with RBBB and no STEMI, no acute changes, no ischemic changes. This EKG was reviewed and interpreted by Dr. Wells. Disposition - Course Course Of Treatment: Pt is a 68 y/o M presenting to the ED brought in by EMS for respiratory distress. LEVEL 5 CAVEAT: Pts full hx and physical is limited d /t intubation. Per EMS, the pt called EMS, and the only information he gave them was that he is on oxygen at home, has been intubated in the past, and that he was allergic to penicillin. EMS gave 20mg Etomidate, 9mg Versed, intubated the pt with size 7 tube, and gave 1 duoneb. He has received 500cc of fluids. EKG at 0033 reveals normal sinus rhythm with rate of 89 BPM with RBBB and no STEMI, no acute changes, no ischemic changes. This EKG was reviewed and interpreted by Dr. Wells. Pts lab results show Hgb of 13.6, Hct of 41, MCV of 98, MCH of 32, BUN/Creatinine ratio of 6.7, Glucose of 255, Calcium of 7.9, and BNP of 105. Pt's initial troponin is 0.01, and initial lactic acid is 1.9. CXR shows: ET tube above the lida. No obvious infiltrate or pleural effusion. Pending official radiology report. In the ED course, the pt was given 3 Duonebs , Solumedrol, Rocephin, and Propofol for sedation. I spoke with Dr. Talavera at 0206 who will be accepting the pt for admission. Pt's dx include acute respiratory distress and COPD exacerbation. - Diagnoses Provider Diagnoses: Acute respiratory distress, COPD exacerbation - Physician Notifications Discussed Care Of Patient With: Yamel Talavera Time Discussed With Above Provider: 02:06 Instructed by Provider To: Admit As Inpatient - Critical Care Time Critical Care Time: 30-74 min Discharge ED - Sign-Out/Discharge Documenting (check all that apply): Patient Departure - Discharge Plan Condition: Stable Disposition: ADMITTED TO [facility] - Billing Disposition and Condition Condition: STABLE Disposition: Admitted to [facility] - Attestation Statements Document Initiated by Scribe: Yes Documenting Scribe: Mikala Hahn Provider For Whom Chloé is Documenting (Include Credential): Meghna Wells MD. Scribe Attestation: IMikala, scribed for Meghna Wells MD. on 04/05/19 at 0507. Scribe Documentation Reviewed: Yes Provider Attestation: The documentation as recorded by the scribeMikala accurately reflects the service I personally performed and the decisions made by me, Meghna Wells MD. Status of Scribe Document: Viewed Consult Consult: 0206 - I spoke with Dr. Talavera about the pt's present condition who will be admitting [facility].
[2019-04-05 01:25] LABS: Anion Gap 6 mmol/L (2-11)
[2019-04-05] MEDS ORDERED: cefTRIAXone(*) 2 GM in NS 0.9% 100 ML* 100 ML IVPB ONE (02:07)
--- OUTSIDE RECORDS SUMMARY | 2019-04-05 02:25 | XMS REPORT | Continuity of Care Document ---
:1950 External Reference #:[id number] Author Name Darin Irby M.D. 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 [phone] Medicine Problems Description No Information Available Social History Type Date Description Comments Sex Unknown ETOH Use Consumes 1 six pack of beer per day Tobacco Use Start: Unknown Light tobacco smoker 6-8 per day as of (10 or fewer 07/2018 cigarettes/day) Recreational Drug Use Denies Drug Use Smoking Status Reviewed: 09/28/18 Light tobacco smoker 6-8 per day as of (10 or fewer 07/2018 cigarettes/day) Exercise Type/Frequency Exercises rarely Exercise more in the summer Allergies, Adverse Reactions, Alerts Active Allergies Reaction Severity Comments Date Penicillin 07/16/2018 Codeine 07/16/2018 Clorine 07/16/2018 Medications Active Medications SIG Qnty Indications Ordering Date Provider Carvedilol take 1 tablet by 60tabs I42.9 Imelda Haq, 09/28/2018 6.25mg mouth twice a day [employer] Tablets Albuterol Sulfate 1 application every Unknown 6 hours as needed (2.5mg/3ML) 0.083% Nebulizer Crestor 1 by mouth every Unknown 20mg Tablets day Ipratropium 1 unit every 6 Unknown [place]/Albuterol hours as needed Sulfate 0.5-2.5(3)mg/3ML Solution Aspir-81 1 by mouth every Unknown 81mg Tablets day DR History Medications Amlodipine Besylate 1 by mouth 30tabs Imelda Haq NP 09/11/2018 - every day 09/27/2018 10mg Tablets Coreg 1 tab by mouth 30tabs I42.9 Imelda Haq NP 09/11/2018 - 3.125mg Tablets twice a day 09/28/2018 Immunizations Description No Information Available Vital Signs Date Vital Result Comment 09/28/2018 1:42pm Height 70 inches 5'10" Weight 138.50 lb Heart Rate 72 /min BP Systolic 142 mmHg second reading ule BP Diastolic 76 mmHg second reading ule BP Systolic Sitting 144 mmHg ule BP Diastolic Sitting 80 mmHg ule BMI (Body Mass Index) 19.9 kg/m2 09/11/2018 12:46pm Height 70 inches 5'10" Weight 138.25 lb Heart Rate 92 /min BP Systolic Sitting 138 mmHg BP Diastolic Sitting 64 mmHg BP Systolic Standing 132 mmHg BP Diastolic Standing 64 mmHg BMI (Body Mass Index) 19.8 kg/m2 Ejection Fraction 50-55% 07/27/18 Echo Results Description No Information Available Procedures Description No Information Available Medical Devices Description No Information Available Encounters Type Date Location Provider Dx Diagnosis Office Visit 09/28/2018 [facility] Imelda Haq, I42.9 Cardiomyopathy, 2:00p [employer]ER unspecified I10 Essential (primary) hypertension E78.5 Hyperlipidemia, unspecified Z72.0 Tobacco use I65.21 Occlusion and stenosis of right carotid artery Office Visit 09/11/2018 [facility] I42.9 Cardiomyopathy, 1:00p [facility] SAMANTHA Haq unspecified I10 Essential (primary) hypertension E78.5 Hyperlipidemia, unspecified Z72.0 Tobacco use Assessments Date Code Description Provider 09/28/2018 I42.9 Cardiomyopathy, unspecified Imelda Haq NP 09/28/2018 I[facility] Essential (primary) hypertension Imelda Haq NP 09/28/2018 E78.5 Hyperlipidemia, unspecified Imelda Haq NP 09/28/2018 Z72.0 Tobacco use Imelda Haq NP 09/28/2018 I65.21 Occlusion and stenosis of right carotid artery Imelda Haq NP 09/11/2018 I42.9 Cardiomyopathy, unspecified Imelda Haq NP 09/11/2018 I10 Essential (primary) hypertension Imelda Haq NP 09/11/2018 E78.5 Hyperlipidemia, unspecified Imelda Haq NP 09/11/2018 Z72.0 Tobacco use Imelda Haq NP Plan of Treatment 09/28/2018 - Imelda Haq NPI42.9 Cardiomyopathy, unspecifiedNew Medication: Carvedilol 6.25 mg - take 1 tablet by mouth twice a dayFollow up:f/u in [address] Mensah Essential (primary) gsxwnetprpejE32.5 Hyperlipidemia, dobpetqdwnrU19.0 Tobacco useI65.21 Occlusion and stenosis of right carotid artery Functional Status Description No Information Available Mental Status Description No Information Available Referrals Description No Information Available
--- OUTSIDE RECORDS SUMMARY | 2019-04-05 02:25 | XMS REPORT | Continuity of Care Document ---
:1950 External Reference #:[id number] Author Name Miryam Mott M.D. Address [address] [facility] [place] [address] Care Team Providers Name Role Phone Geovanni No - Pulmonary Disease Care Team Information Field Application Engineer Miryam Mott M.D. - Family Medicine Care Team Information Field Application Engineer Unavailable David Johns - Compliance Reviewer Care Team Information Field Application Engineer Thumin SAMANTHA, Imelda Care Team Information Field Application Engineer [phone] [employer] - [employer] Care Team Information Field Application Engineer Problems Active Problems Provider Date Chronic obstructive lung disease Ryan Levine M.D. Onset: 01/24/2010 Pure hypercholesterolemia Ryan Levine M.D. Onset: 01/24/2010 Essential hypertension Ryan Levine M.D. Onset: 05/28/2012 Mixed hyperlipidemia Miryam Mott M.D. Onset: 03/05/2016 Alcoholism Miryam Mott M.D. Onset: 03/05/2016 Tobacco user Miryam Mott M.D. Onset: 05/07/2018 Cardiomyopathy Miryam Mott M.D. Onset: 10/01/2018 Hyperlipidemia Miryam Mott M.D. Onset: 10/01/2018 Impaired fasting glycaemia Miryam Mott M.D. Onset: 03/27/2019 Social History Type Date Description Comments Sex Unknown Tobacco Use Start: Unknown Current Cigarette smoked 40 plus years Smoker 1/2 Pack Daily 1ppd Smoking Status Reviewed: 03/27/19 Current Cigarette smoked 40 plus years Smoker 1/2 Pack Daily 1ppd ETOH Use Consumes 1 six pack of x 40 years beer per day Tobacco Use Start: Unknown End: Patient is a former Unknown smoker Recreational Drug Use Denies Drug Use Allergies, Adverse Reactions, Alerts Active Allergies Reaction Severity Comments Date Penicillin 04/20/2003 Codeine 04/20/2003 Clorine 01/24/2010 Medications Active Medications SIG Qnty Indications Ordering Provider Date Fluticasone 1 puff twice a 60units J44.9 [facility], 03/27/2019 Propionate/Salmetero day M.D. l Diskus 500-50mcg/Dose Aerosol Atrovent HFA take 2 puffs 38.7gm J44.9 [facility], 03/27/2019 every 6 hours as M.D. 17mcg/Act Aerosol needed Spiriva Respimat inhale 2 puffs by 12gm J44.9 [facility], 03/27/2019 mouth every day M.D. 2.5mcg/Act Aerosol Automatic Blood take blood 1units I10 [facility], 05/07/2018 Pressure Monitor pressure daily M.D. Device Albuterol Sulfate 1 unit every 6 225ml J44.9 [facility], 04/21/2017 hours as needed - M.D. (2.5mg/3ML) 0.083% dx: j44.9 Nebulizer Crestor take 1 tablet by 90tabs E78.2 [facility], 04/01/2014 20mg Tablets mouth one time M.D. daily as directed Asprin 1 po qd Unknown 81mg Nicorette Unknown 4mg Gum Carvedilol 1 by mouth twice Unknown 6.25mg a day Tablets Immunizations CPT Code Status Date Vaccine Lot # [id number] Given 03/27/2019 Influenza Vac, Quadrivalent, Slit Virus, Im [id number] Given 05/07/2018 Pneumococcal Immunization [id number] Given 05/07/2018 High-Dose, Influenza Virus Vacccine-fluzone 65 and [id number] 03419 Given 10/03/2015 Pneumococcal Conjugate Vacc-13 [id number] Given 05/28/2012 DO Not Use Split Influenza Virus Vaccine [id number] 61883 Given 11/15/2010 Tdap Tetanus, W Pertussis [id number] 18070 Given 01/12/2009 Pneumococcal Immunization [id number] Vital Signs Date Vital Result Comment 03/27/2019 9:10am BP Systolic 144 mmHg BP Diastolic 70 mmHg Heart Rate 96 /min Body Temperature 97.7 F Respiratory Rate 16 /min Height 68 inches 5'8" Weight 131.12 lb BMI (Body Mass Index) 19.9 kg/m2 10/01/2018 8:37am BP Systolic 148 mmHg BP Diastolic 66 mmHg Heart Rate 82 /min Body Temperature 98.2 F Respiratory Rate 17 /min Height 68 inches 5'8" Weight 138.00 lb BMI (Body Mass Index) 21.0 kg/m2 Results Test Date Facility Test Result H/L Range Note [place] [facility] [place] 0.07 ng/mL Critical high <0.04 1 finding 9 CBC Auto Diff [facility] White Blood 6.3 10^3/uL Normal 3.5-10.8 9 Count Red Blood Count 4.46 10^6/uL Normal 4.18-5.48 Hemoglobin 14.5 g/dL Normal 14.0-18.0 Hematocrit 43 % Normal 42-52 Mean Corpuscular Volume 96 fL High 80-94 Mean Corpuscular Hemoglobin 33 pg High 27-31 Mean Corpuscular HGB Conc 34 g/dL Normal 31-36 Red Cell Distribution Width 14 % Normal 10-15 Platelet Count 261 10^3/uL Normal 150-450 Mean Platelet Volume 7.7 fL Normal 7.4-10.4 Abs Neutrophils 3.7 10^3/uL Normal 1.5-7.7 Abs Lymphocytes 1.3 10^3/uL Normal 1.0-4.8 Abs Monocytes 0.6 10^3/uL Normal 0-0.8 Abs Eosinophils 0.7 10^3/uL High 0-0.6 Abs Basophils 0.1 10^3/uL Normal 0-0.2 Abs Nucleated RBC 0.0 10^3/uL Granulocyte % 58.0 % Lymphocyte % 21.3 % Monocyte % 8.9 % Eosinophil % 10.8 % Basophil % 1.0 % Nucleated Red Blood Cells % 0.0 Venous Blood Gas 03/10/2019 [facility]ous Blood pH 7.40 Normal 7.32-7.43 Venous Pco2 51 mmHg Normal 41-51 Venous Po2 54.0 mmHg High 35-45 Venous O2 Saturation 87.3 % High 70-80 Venous Blood Base Excess 5.5 mmol/L High 0.0-4.0 2 Venous Bicarbonate Hco3 28.9 mmol/L High 24-28 Laboratory test 03/10/2019 [facility] B-Type Natriuretic 131 pg/mL High <=100 finding Peptide BNP Comp Metabolic Panel 03/10/2019 [facility] Sodium 137 mmol/L Normal 135-145 Potassium 4.1 mmol/L Normal 3.5-5.0 Chloride 102 mmol/L Normal 101-111 Co2 Carbon Dioxide 27 mmol/L Normal 22-32 Anion Gap 8 mmol/L Normal 2-11 Glucose 121 mg/dL High 70-100 Blood Urea Nitrogen 5 mg/dL Low 6-24 Creatinine 0.78 mg/dL Normal 0.67-1.17 BUN/Creatinine Ratio 6.4 Low 8-20 Calcium 9.4 mg/dL Normal 8.6-10.3 Total Protein 6.9 g/dL Normal 6.4-8.9 Albumin 4.3 g/dL Normal 3.2-5.2 Globulin 2.6 g/dL Normal 2-4 Albumin/Globulin Ratio 1.7 Normal 1-3 Total Bilirubin 0.30 mg/dL Normal 0.2-1.0 Alkaline Phosphatase 67 U/L Normal 34-104 Alt 14 U/L Normal 7-52 Ast 21 U/L Normal 13-39 Egfr Non- 98.7 >60 Egfr 119.4 >60 3 Laboratory test 03/10/2019 [facility] Troponin I 0.06 ng/mL Critical high <0.04 4 finding CBC Auto Diff 12/01/2018 [facility] White Blood 6.9 10^3/uL Normal 3.5-10.8 Count Red Blood Count 5.10 10^6/uL Normal 4.18-5.48 Hemoglobin 16.0 g/dL Normal 14.0-18.0 Hematocrit 48 % Normal 42-52 Mean Corpuscular Volume 93 fL Normal 80-94 Mean Corpuscular Hemoglobin 31 pg Normal 27-31 Mean Corpuscular HGB Conc 34 g/dL Normal 31-36 Red Cell Distribution Width 13 % Normal 10-15 Platelet Count 209 10^3/uL Normal 150-450 Mean Platelet Volume 8.2 fL Normal 7.4-10.4 Abs Neutrophils 5.1 10^3/uL Normal 1.5-7.7 Abs Lymphocytes 1.0 10^3/uL Normal 1.0-4.8 Abs Monocytes 0.5 10^3/uL Normal 0-0.8 Abs Eosinophils 0.3 10^3/uL Normal 0-0.6 Abs Basophils 0.0 10^3/uL Normal 0-0.2 Abs Nucleated RBC 0.0 10^3/uL Granulocyte % 74.3 % Lymphocyte % 14.7 % Monocyte % 6.7 % Eosinophil % 3.7 % Basophil % 0.6 % Nucleated Red Blood Cells % 0.1 Comp Metabolic Panel 12/01/2018 [facility] Sodium 135 mmol/L Normal 135-145 Potassium 4.1 mmol/L Normal 3.5-5.0 Chloride 96 mmol/L Low 101-111 Co2 Carbon Dioxide 30 mmol/L Normal 22-32 Anion Gap 9 mmol/L Normal 2-11 Glucose 136 mg/dL High 70-100 Blood Urea Nitrogen 11 mg/dL Normal 6-24 Creatinine 0.87 mg/dL Normal 0.67-1.17 BUN/Creatinine Ratio 12.6 Normal 8-20 Calcium 10.0 mg/dL Normal 8.6-10.3 Total Protein 7.7 g/dL Normal 6.4-8.9 Albumin 4.7 g/dL Normal 3.2-5.2 Globulin 3.0 g/dL Normal 2-4 Albumin/Globulin Ratio 1.6 Normal 1-3 Total Bilirubin 0.50 mg/dL Normal 0.2-1.0 Alkaline Phosphatase 68 U/L Normal 34-104 Alt 17 U/L Normal 7-52 Ast 17 U/L Normal 13-39 Egfr Non- 87.0 >60 Egfr 105.3 >60 5 Laboratory test 12/01/2018 [facility] [place]roponin I 0.00 ng/mL <0.04 6 finding CBC Electronic a 10/01/2018 [facility](fma) WBC 6.8 x10^3/UL 4.0- 10.0 RBC 5.00 x10^6/UL 3.93-6.00 HGB 15.7 g/dL 12.0-17.0 HCT 47 % 35-50 MCV 93.8 fL 80.0-95.0 MCH 31.4 pg 25.6-32.2 MCHC 33.5 g/dL 32.2-36.0 RDW-CV 12.2 % 11.6-14.4 PLT 267 x10^3/UL 163-400 MPV 10.3 fL 9.4-12.4 Olivia# 4.29 x10^3/UL 1.56-6.13 Lymph# 1.71 x10^3/UL 1.18-3.74 Payne# 0.50 x10^3/UL 0.24-0.82 Eos # 0.2 x10^3/UL 0.0-0.5 Baso # 0.03 x10^3/UL 0.01-0.08 Olivia% 63.5 % 34.0-70.0 Lymph % 25.3 % 20.0-52.0 Payne% 7.4 % 5.0-12.0 Eos% 3.4 % 0.7-7.0 Baso% 0.4 % 0.1-1.2 Comprehensive Metabolic 10/01/2018 [facility](fma) Sodium 140 mEq/L 134-149 Prof Potassium 5.1 mEq/L 3.6-5.5 Chloride 99 mEq/L 94-112 Carbon Dioxide 32 mEq/L 21-32 Glucose 116 mg/dL High 70-105 7 BUN 6 mg/dL 6-26 Creatinine 0.8 mg/dL 0.6-1.4 BUN/Creat Ratio 7.5 CALC Low 8.0-36.0 Calcium 10.1 mg/dL 8.6-10.2 Total Protein 7.5 g/dL 6.4-8.3 Albumin 5.0 g/dL 3.8-5.5 Globulin 2.5 g/dL 2.0-4.8 A/G Ratio 2.0 CALC 0.6-2.3 Alk. Phosphatase 68 U/L 22-95 Alt (SGPT) 17 U/L 7-35 Ast (Sgot) 20 U/L 5-34 Total Bilirubin 0.6 mg/dL 0.2-1.3 GFR Non- >60 ml/min/1.73m^ >=60 GFR >60 ml/min/1.73m^ >=60 Lipid Profile 10/01/2018 [facility](fma) Cholesterol 187 mg/dL 120- 200 Triglycerides 91 mg/dL 30-200 HDL Cholesterol 75 mg/dL High 30-70 8 LDL (Calculated) 94 CALC 0-129 VLDL Cholesterol 18 mg/dL 0-50 HDL Risk Factor 2.5 CALC 0.0-4.4 Laboratory test 10/01/2018 [facility](fma) Free T4 1.07 ng/dL 0.75- 1.54 finding TSH 1.37 mIU/L 0.50-6.00 1 Result TnIDx:0.07 Called to [id number] at: 22:23:02 by:[email or web address] Read back by: [id number] Troponin-I testing on Plasma Separator Tubes (PST) has a known false positive rate of 0.20-0.40%. All positive troponins reflex immediately to secondary confirmatory testing. Using the [employer] DxI 800 Access Immunoassay systems, the 99th percentile upper reference limit was demonstrated to be < 0.03 ng/mL. 2 Reference ranges based on room air. 3 Because ethnic data is not always readily available, this report includes an eGFR for both -Americans and non- Americans. The National Kidney Disease Education Program (NKDEP) does not endorse the use of the MDRD equation for patients that are not between the ages of 18 and 70, are , have extremes of body size, muscle mass, or nutritional status, or are non- or non-. According to the National Kidney Foundation, irrespective of diagnosis, the stage of the disease is based on the level of kidney function: Stage Description GFR(mL/min/1.73 m(2)) 1 Kidney damage with normal or decreased GFR 90 2 Kidney damage with mild decrease in GFR 60-89 3 Moderate decrease in GFR 30-59 4 Severe decrease in GFR 15-29 5 Kidney failure <15 (or dialysis) 4 Result TnIDx:0.06 Called to [id number] at: 20:07:46 by:[id number] Read back by: [id number] Troponin-I testing on Plasma Separator Tubes (PST) has a known false positive rate of 0.20-0.40%. All positive troponins reflex immediately to secondary confirmatory testing. Using the [employer] DxI 800 Access Immunoassay systems, the 99th percentile upper reference limit was demonstrated to be < 0.03 ng/mL. 5 Because ethnic data is not always readily available, this report includes an eGFR for both -Americans and non- Americans. The National Kidney Disease Education Program (NKDEP) does not endorse the use of the MDRD equation for patients that are not between the ages of 18 and 70, are , have extremes of body size, muscle mass, or nutritional status, or are non- or non-. According to the National Kidney Foundation, irrespective of diagnosis, the stage of the disease is based on the level of kidney function: Stage Description GFR(mL/min/1.73 m(2)) 1 Kidney damage with normal or decreased GFR 90 2 Kidney damage with mild decrease in GFR 60-89 3 Moderate decrease in GFR 30-59 4 Severe decrease in GFR 15-29 5 Kidney failure <15 (or dialysis) 6 Troponin-I testing on Plasma Separator Tubes (PST) has a known false positive rate of 0.20-0.40%. All positive troponins reflex immediately to secondary confirmatory testing. Using the [employer] Dx[employer]wright 800 Access Immunoassay systems, the 99th percentile upper reference limit was demonstrated to be < 0.03 ng/mL. 7 RESULTS VERIFIED BY REPEAT ANALYSIS 8 consistent w/ previous results Procedures Date Code Description Status 07/10/2017 20857016 Colonoscopy Completed Medical Devices Description No Information Available Encounters Type Date Location Provider Dx Diagnosis Office Visit 10/01/2018 Main Office Miryam Mott M.D. I42.9 Cardiomyopathy, 8:40a unspecified J44.9 Chronic obstructive pulmonary disease, unspecified I10 Essential (primary) hypertension F17.290 Nicotine dependence, other tobacco product, uncomplicated F10.20 Alcohol dependence, uncomplicated K43.9 Ventral hernia without obstruction or gangrene E78.5 Hyperlipidemia, unspecified Assessments Date Code Description Provider 03/27/2019 J44.9 Chronic obstructive pulmonary disease, Miryam Mott M.D. unspecified 03/27/2019 I10 Essential (primary) hypertension Miryam Mott M.D. 03/27/2019 I42.9 Cardiomyopathy, unspecified Miryam Mott M.D. 03/27/2019 Z23 Encounter for immunization Miryam Mott M.D. 10/01/2018 I42.9 Cardiomyopathy, unspecified Miryam Mott M.D. 10/01/2018 J44.9 Chronic obstructive pulmonary disease, Miryam Mott M.D. unspecified 10/01/2018 I10 Essential (primary) hypertension Miryam Mott M.D. 10/01/2018 F17.290 Nicotine dependence, other tobacco product, Miryam Mott M.D. uncomplicated 10/01/2018 F10.20 Alcohol dependence, uncomplicated Miryam Mott M.D. 10/01/2018 K43.9 Ventral hernia without obstruction or gangrene Miryam Mott M.D. 10/01/2018 E78.5 Hyperlipidemia, unspecified Miryam Mott M.D. Plan of Treatment Future Appointment(s):05/10/2019 12:20 pm - Miryam Mott M.D. at [id number] - Miryam Mott M.D.J44.9 Chronic obstructive pulmonary disease, unspecifiedNew Medication:Fluticasone Propionate/Salmeterol Diskus 500-50 mcg/ Dose - 1 puff twice a dayAtrovent HFA 17 mcg/Act - take 2 puffs every 6 hours as neededSpiriva Respimat 2.5 mcg/Act - inhale 2 puffs by mouth every dayComments:try fluticasone salmeterol 1 puff twice a day (generic) with with Spiriva 2 puffs dailyas needed for wheeze: albuterol neb and atrovent call if symptoms worsen or if not affordableFollow up:2 moI10 Essential (primary) hypertensionComments:The patient will continue to monitor blood pressure and let me know the blood pressure results if there are readings persistently above 140/90. Goal blood pressure is less than 130/80. Recommend low salt/cardiac diet such as the Mediterranean diet and routine exercise at least 30 minutes a day.I42.9 Cardiomyopathy, unspecifiedComments:has cardiology next weekZ23 Encounter for immunizationAllComments:Medication Management Patient Understands medications he's taking? Yes No Are there Barriersto Adherence? Yes No Has the patient been asked about herbal supplements and therapies, and OTC meds? Yes No Functional Status Description No Information Available Mental Status Description No Information Available Referrals Refer to Reason for Referral Status Appt Date [facility] nebulizer machine, set up and tubing Scheduled [address] [place] [address] [phone]
--- OUTSIDE RECORDS SUMMARY | 2019-04-05 02:25 | XMS REPORT | Continuity of Care Document ---
:1950 External Reference #:[id number] Author Name Imelda Haq NP (transmitted by agent of provider Ally Greer) Address [address] [place] [address] Care Team Providers Name Role Phone Miryam Mott MD - Family Care Team Information Sales Technician [phone] Medicine Problems Description No Information Available Social History Type Date Description Comments Sex Unknown Tobacco Use Start: Unknown End: Former Cigarette Smoker Unknown Smoking Status Reviewed: 04/01/19 Former Cigarette Smoker ETOH Use consumes 3-4 beers per day Tobacco Use Start: Unknown Light tobacco smoker 6-8 per day as of (10 or fewer 07/2018 cigarettes/day) Recreational Drug Use Denies Drug Use Exercise Type/Frequency Exercises sporadically Allergies, Adverse Reactions, Alerts Active Allergies Reaction Severity Comments Date Penicillin 07/16/2018 Codeine 07/16/2018 Clorine 07/16/2018 Medications Active Medications SIG Qnty Indications Ordering Date Provider Rosuvastatin Calcium take 1 tablet by 90tabs Imelda Haq, 04/01/2019 mouth daily. [employer] 40mg Tablets Carvedilol take 1 tablet by 60tabs I42.9 Imelda Haq, 09/28/2018 6.25mg mouth twice a day [employer] Tablets Albuterol Sulfate 1 application every Unknown 6 hours as needed (2.5mg/3ML) 0.083% Nebulizer Ipratropium 1 unit every 6 Unknown Dana/Albuterol hours as needed Sulfate 0.5-2.5(3)mg/3ML Solution Aspir-81 1 by mouth every Unknown 81mg Tablets day DR Immunizations Description No Information Available Vital Signs Date Vital Result Comment 04/01/2019 2:49pm Height 70 inches 5'10" Weight 128.50 lb with shoes Heart Rate 90 /min radial,regular BP Systolic Sitting 148 mmHg Ra, sm cuff BP Diastolic Sitting 70 mmHg Ra, sm cuff BP Systolic Standing 140 mmHg LA sitting, sm cuff BP Diastolic Standing 72 mmHg LA sitting, sm cuff BMI (Body Mass Index) 18.4 kg/m2 Ejection Fraction 50%-55% echo 07/27/18 09/28/2018 1:42pm Height 70 inches 5'10" Weight 138.50 lb Heart Rate 72 /min BP Systolic 142 mmHg second reading ule BP Diastolic 76 mmHg second reading ule BP Systolic Sitting 144 mmHg ule BP Diastolic Sitting 80 mmHg ule BMI (Body Mass Index) 19.9 kg/m2 Results Description No Information Available Procedures Description No Information Available Medical Devices Description No Information Available Encounters Type Date Location Provider Dx Diagnosis Office Visit 03/11/2019 [facility] Demetrio Herron R06.02 Shortness of 11:25a Of Justine Daniels M.D., breath FAC, [facility] R79.89 Other specified abnormal findings of blood chemistry Assessments Date Code Description Provider 04/01/2019 I42.9 Cardiomyopathy, unspecified Imelda Haq NP 04/01/2019 I10 Essential (primary) hypertension Imelda Haq NP 04/01/2019 E78.5 Hyperlipidemia, unspecified Imelda Haq, [employer] 04/01/2019 R06.02 Shortness of breath Imelda Haq [employer] 04/01/2019 I65.23 Occlusion and stenosis of bilateral Imelda YuliyaSAMANTHA [place] carotid arteries 03/11/2019 R06.02 Shortness of breath Demetrio Daniels M.D., [facility], [facility] 03/11/2019 R79.89 Other specified abnormal findings of Demetrio Daniels M.D., FAC, blood chemistry [facility]AS[facility] Plan of Treatment Future Appointment(s):04/19/2019 9:00 am - [place] [facility] Schedule at [facility]04/01/2019 - Imelda Haq NPI42.9 Cardiomyopathy, unspecifiedNew Orders:Echocardiogram, Scheduled: 04/19/19Follow up:follow up in 1 month with Imelda Haq [facility] Follow up in 3-[address] Mensah Essential ( primary) [id number] Hyperlipidemia, unspecifiedRecommendations:Crestor is being increased to 40mg by mouth daily. Should you notice muscle aches or pains please call me.R06.02 Shortness of breathNew Orders:Stress Test, Pharmacologic Nuclear (Lexiscan), Ordered: 04/01/19I65.23 Occlusion and stenosis of bilateral carotid arteriesNew Xrays:Cta Head [id number] & Neck [id number] W/Contrast, Scheduled: 04/08/19 Functional Status Description No Information Available Mental Status Description No Information Available Referrals Description No Information Available
[2019-04-05] MEDS ORDERED: Albuterol/Ipratropium NEB.SOL* Albuterol 2.5 MG/Ipratropium 0.5 MG 3 ML INH PRN ×2 (02:52→11:00)
[2019-04-05] MEDS: Albuterol/Ipratropium NEB.SOL* Albuterol 2.5 MG/Ipratropium 0.5 MG 3 ML INH SCH ×3 (03:55→10:41)
[2019-04-05] MEDS: Azithromycin 500 mg/250 ml NS 500 MG/250 ML BAG IVPB SCH (04:03)
[2019-04-05 04:48] LABS: ABS Lymphocytes 0.7 10^3/ul (1.0-4.8); ABS Monocytes 0.2 10^3/ul (0-0.8); ABS Neutrophils 7.2 10^3/ul (1.5-7.7); Eosinophil % 0.4 %; Hematocrit 44 % (42-52); Hemoglobin 14.6 g/dL (14.0-18.0); Lymphocyte % 8.5 %; Mean Corpuscular HGB Conc 34 g/dL (31-36); Mean Corpuscular Hemoglobin 33 pg (27-31); Mean Corpuscular Volume 98 fL (80-94); Mean Platelet Volume 8.2 fL (7.4-10.4); Platelet Count 211 10^3/uL (150-450); Red Blood Count 4.46 10^6 /uL (4.18-5.48); Red Cell Distribution Width 14 % (10-15); White Blood Count 8.3 10^3/uL (3.5-10.8)
[2019-04-05 04:59] LABS: Albumin 3.9 g/dL (3.2-5.2); Albumin/Globulin Ratio 1.6 (1-3); BUN/Creatinine Ratio 7.2 (8-20); Calcium 8.4 mg/dL (8.6-10.3); EGFR African American 111.2 (>60); EGFR Non-African American 91.9 (>60); Globulin 2.4 g/dL (2-4); Potassium 4.6 mmol/L (3.5-5.0); Total Bilirubin 0.4 mg/dL (0.2-1.0); Total Protein 6.3 g/dL (6.4-8.9)
[2019-04-05] MEDS: Heparin VIAL(*) 5000 UNITS/ML VIAL (FIVE THOUSAND) SUBCUT SCH ×3 (05:03→20:38)
[2019-04-05] MEDS: Propofol* 100 ML IV SCH ×2 (05:03→09:29)
[2019-04-05] MEDS: NS 0.9% 1000 ML** 1,000 ML IV SCH ×2 (05:03→09:07)
--- NOTE | 2019-04-05 05:17 | HP ---
CC: Dr. Miryam Mott * HISTORY AND PHYSICAL: DATE OF ADMISSION: 04/05/19 TIME OF EVALUATION: 2:30 a.m. PRIMARY CARE PROVIDER: Miryam Mott MD CHIEF COMPLAINT: Shortness of breath. HISTORY OF PRESENT ILLNESS: Mr. Gonzalez is a 68-year-old male with a past medical history of COPD, on home O2, hypertension, hyperlipidemia, prior history of alcohol abuse and tobacco, cardiomyopathy with ejection fraction of 20%, who called EMS earlier today for shortness of breath. At the time of my evaluation, the patient is intubated and sedated, so his history is obtained from the ED record. As per triage note, the patient was unable to give details because he could not speak. EMS was able to understand that the patient wears home O2 and that he would want to be intubated. Reported initial oxygen saturation was in the 60s. He became unresponsive during transport and was intubated with a 7 endotracheal tube en route, received 20 mg of etomidate and 9 mg of Versed as well as fluid bolus and 1 DuoNeb. In the emergency room, the patient was evaluated and a blood gas showed hypercapnic respiratory failure. The patient was admitted to [facility] earlier this month on 03/11/19 with COPD exacerbation and was discharged home on 03/12/19. PAST MEDICAL HISTORY: 1. COPD, on 2 L nasal cannula with history of intubation in 2009 and 2012 for respiratory failure. There is documentation of a possible cardiac arrest in 2009. 2. Hypertension. 3. Hyperlipidemia. 4. Prior history of alcohol abuse. 5. Tobacco abuse. 6. Cardiomyopathy with reported ejection fraction 20% on the prior H and P. MEDICATION LIST: Not available at the time of this admission. They will need to confirmed in the morning. ALLERGIES: CODEINE and PENICILLIN. FAMILY HISTORY: As per prior HPI, is noncontributory. SOCIAL HISTORY: Unable to obtain from the patient at this time, as he is sedated. As per prior HPI, he has had over 40-pack year history of smoking, followed by a few year history of vaping. The patient also has a history of alcohol abuse drinking almost 6 pack of beers a day; he cut down and as per the last HPI, he drinks 2 to 4 beers every other day. 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 Surrogate decision maker is his daughter, Alejandrina Gonzalez, phone number is [phone]. REVIEW OF SYSTEMS: I am unable to obtain from the patient at this time because he is intubated and sedated. PHYSICAL EXAMINATION GENERAL: The patient is an elderly gentleman, lying in the ED stretcher, sedated, in no acute distress. VITAL SIGNS: Temperature 96.6, heart rate is 70, respiratory rate is 19, oxygen saturation is 99% on CMV with tidal volume of 450, FiO2 of 45. HEENT: Pupils are equal. Moist mucous membranes. CHEST: Breath sounds bilaterally diminished with no added sounds. No wheezing at this time. CVS: Normal S1, S2. Regular rate and rhythm. ABDOMEN: Soft, nontender, nondistended. Bowel sounds present. EXTREMITIES: No edema. NEURO: The patient is sedated at this time and does not follow commands. DIAGNOSTIC STUDIES/LAB DATA: CBC showed WBC of 9.7, hemoglobin of 13.6, hematocrit of 41, platelets of 235. INR is 0.94. ABG showed a pH of 7.24, pCO2 of 60, paO2 of 122, oxygen saturation of 99%. Chemistry showed a sodium of 137, chloride of 104, bicarb of 27, BUN of 6, creatinine of 0.9, glucose 255. Lactic acid is 1.9. Calcium 7.9. LFTs are normal. BNP is 105. Chest x-ray is not officially read, but as per discussion with ED provider, she thinks the ET tube is properly placed. EKG done on 04/05/19 at 12:33 a.m. shows sinus rhythm at 89 beats per minute with no acute ischemic changes. There is a right bundle-branch block and this is new when compared to his prior EKG from 03/11/19. ASSESSMENT AND PLAN: Mr. Gonzalez is a 68-year-old male with a past medical history of COPD with prior intubations, hypertension, hyperlipidemia, tobacco abuse, prior history of alcohol abuse, cardiomyopathy, who presented to the emergency room with acute on chronic hypercapnic/hypoxemic respiratory failure secondary to COPD exacerbation. 1. Acute hypoxemic/hypercapnic respiratory failure. This appears to be secondary to a chronic obstructive pulmonary disease exacerbation. I do not see infiltrates on his chest x-ray, but the patient was admitted earlier this month with chronic obstructive pulmonary disease exacerbation and was discharged on steroid taper. He will be continued on steroids, bronchodilators. We will add ceftriaxone and Zithromax for bacterial coverage. The patient does have a new right bundle-branch block on his EKG and that combined with his dyspnea, it is concerning for pulmonary embolism contributing to his respiratory failure. So, he will have a CTA of the chest to rule out pulmonary embolism. The patient is intubated and he received propofol for sedation. 2. Chronic obstructive pulmonary disease exacerbation. As described above, we will continue bronchodilators, steroids, and antibiotics. 3. History of cardiomyopathy. The patient had minimal troponin elevation on his prior admission and troponin is negative at this time. We will need to confirm his outpatient medications, so they can be resumed. 4. DVT prophylaxis. The patient has a score of 2 on the DVT Prophylaxis Assessment Guide and he is advised to continue his heparin. 5. GI prophylaxis. The patient will be started on Protonix. 6. Code status is full. TIME SPENT: Approximately 50 minutes of critical care time was spent to complete the admission. [id number]/CPS #: [id number] ISAMAR
[2019-04-05] MEDS ORDERED: Iohexol 350* (CONTRAST) 500 ML MDV IV ONE (05:35)
[2019-04-05] MEDS ORDERED: methylPREDNISolone SOD 40 MG* 1 ML VIAL ONE (08:35)
[2019-04-05] MEDS: methylPREDNISolone SOD 40 MG* 1 ML VIAL IV SCH ×2 (08:39→19:47)
[2019-04-05] MEDS ORDERED: Pantoprazole IV* 40 MG IV SCH (09:00)
[2019-04-05] MEDS ORDERED: NS 0.9% 1000 ML** 1,000 ML IV SCH (10:43)
--- NOTE | 2019-04-05 11:00 | CONSULT ---
Consult Consult: Consultation Note -- Critical Care Requesting Physician: Dr Talavera Reason for consult: respiratory failure Limitations in history/physical: intubated, sedated Date of consult: 04/05/2019 HPI: 68y M w/pmhx of COPD, Home O2 2L, HTN, HLD, prior alcohol abuse/tobacco use , Chronic LV systolic dysfunction (LVEF 20%); prior admissions for COPD exaccerbation, last was early March 2019; presented to ER 04/05 after calling EMS for shortness of breath, acute onset. On EMS arrival, he was hypoxic to 60s , then during transport became less responsive. he was intubated in field by EMS. in ER he was given steroid, ceftriaxone empirically for COPD exaccerbation. He was afebrile, BP and HR stable, no signs of sepsis noted. ABG demonstrated acute hypercapnea with respiratory acidosis. EKG noted a new RBBB pattern and so a CTA chest performed to rule out PE, demonstrating no acute PE or other pulmonary findings of consolidation/congestion/pneumothorax, but emphysematous changes present. He is on sedation but awakens, follows commands. He has been on CPAP trial and doing well, planning for extubation. ED/floor Course: as above ROS: ROS unable to be obtained secondary to intubated/sedated PMHx: COPD, Home O2 2L, HTN, HLD, prior alcohol abuse/tobacco use, Chronic LV systolic dysfunction (LVEF 20%); prior admissions for COPD exaccerbation PSHx: none as per record Family History: unknown Social History: Alcohol-prior use, Smoking-prior use, Drug use-none; unknown at this time Allergies: Allergies Allergy/AdvReac Type Severity Reaction Status Date / Time codeine AdvReac Vomiting Verified 03/10/19 19:08 Penicillins AdvReac Rash Verified 03/10/19 19:08 Home Medications: Albuterol 2.5MG/3ML (0.083%)* [Ventolin 2.5 MG/3 ML NEB.SUE*] 2.5 mg INH Q6H PRN 12/01/18 [History Confirmed 03/10/19] Aspirin EC TAB* [Ecotrin EC Low Dose 81 MG*] 81 mg PO DAILY 12/01/18 [History Confirmed 03/10/19] Budesonide/Formote 160/4.5(NF) [Symbicort 160/4.5 (NF)] 2 puff INH BID 12/01/18 [History Confirmed 03/10/19] Ipratropium 0.5MG/2.5ML NEB* [Atrovent 0.5 MG NEB.SUE*] 0.5 mg INH Q4H PRN 12/01 [History Confirmed 03/10/19] Rosuvastatin (NF) [Crestor (NF)] 20 mg PO DAILY 12/01/18 [History Confirmed 07/28] Carvedilol 6.25 mg PO BID 03/11/19 [History Confirmed 03/11/19] guaiFENesin [Expectorant] 100 mg PO Q6H #1 bottle 03/12/19 [Rx] predniSONE TAB* [Deltasone TAB*] 50 mg PO DAILY #3 tab 03/12/19 [Rx] Tele: NSR Vitals: Vital Signs Temp 96.3 F 04/05/19 09:00 Pulse 81 04/05/19 10:43 Resp 16 04/05/19 10:43 BP 143/73 04/05/19 09:00 Pulse Ox 99 04/05/19 10:43 Intake & Output 04/04/19 04/05/19 04/05/19 18:59 06:59 18:59 Intake Total 1493 Output Total 470 565 Balance 1023 -565 Weight 60.328 kg Intake: IV Fluids 1396 NS (0.9%) 396 Medicated IV 97 propofol 97 Output: Gabriel 470 565 O2/Vent: AC 14/450/+5/21% ; now on CPAP 5/5 21% ; now extubated to VM Infusions: NS 125cc/hr, propofol 55 Current Medications: Albuterol/Ipratropium (Duoneb (Albuterol 2.5 Mg/Ipratropium 0.5 Mg)) 1 neb INH Q4H PRN PRN Reason: SOB/WHEEZING Famotidine (Pepcid Tab*) 20 mg PO DAILY [facility] Heparin Sodium (Porcine) (Heparin Vial(*)) 5,000 units SUBCUT Q8HR [facility] Last Admin: 04/05/19 05:03 Dose: 5,000 units Azithromycin (Zithromax 500 Mg/250 Ml) 500 mg in 250 mls @ 250 mls/hr IVPB Q24H [facility] Last Admin: 04/05/19 04:03 Dose: 250 mls/hr Sodium Chloride (Ns 0.9% 1000 Ml) 1,000 mls @ 50 mls/hr IV PER RATE [facility] Methylprednisolone Sodium Succinate (Solu-Medrol 40 Mg) 40 mg IV [facility] Last Admin: 04/05/19 08:39 Dose: 40 mg Physical Exam: Constitutional: intubated sedated, no distress, no diaphoresis Head: normocephalic, atraumatic Eyes: no pallor, no icterus ENT: moist mucous membranes Neck: soft, supple, no jvd CVS: normal rate, regular, no murmur Chest/Resp: bilateral air entry, distant breath sounds+, no rhales, no wheeze, no rhonchi, no acc muscle use Abdomen/GI: soft, nontender, nondistended, BS+ Ext/Msk: warm, pulses+, no edema Skin: intact, warm Neuro: intubated, sedated but now following commands on less sedation, pupils reactive, moving all extremities equally Psych: unable to obtain Labs: Laboratory Results - last 24 hr 04/05/19 04/05/19 04/05/19 00:30 00:30 00:30 WBC 9.7 RBC 4.22 Hgb 13.6 L Hct 41 L MCV 98 H MCH 32 H MCHC 33 RDW 13 Plt Count 235 MPV 8.3 Neut % (Auto) 68.6 Lymph % (Auto) 21.0 [place] % (Auto) 4.2 Eos % (Auto) 5.6 Baso % (Auto) 0.6 Absolute Neuts (auto) 6.7 Absolute Lymphs (auto) 2.0 Absolute Monos (auto) 0.4 Absolute Eos (auto) 0.5 Absolute Basos (auto) 0.1 Absolute Nucleated RBC 0.0 Nucleated RBC % 0.0 INR (Anticoag Therapy) 0.94 Patient Temperature ABG pH ABG pH (Temp Correct) ABG pCO2 ABG pCO2 (Temp Corrct ABG pO2 ABG pO2 (Temp Correct ABG HCO3 ABG O2 Saturation ABG Base Excess Respiration Rate O2 Delivery Device Ventilator Type Vent Mode FiO2 Inspiratory Time PEEP Pressure Support Pressure Control EPAP IPAP BiPAP Sodium 137 Potassium TNP Chloride 104 Carbon Dioxide 27 Anion Gap 6 BUN 6 Creatinine 0.90 Est GFR ( Amer) 101.2 Est GFR (Non-Af Amer) 83.7 BUN/Creatinine Ratio 6.7 L Glucose 255 H Lactic Acid Calcium 7.9 L Total Bilirubin 0.30 AST TNP ALT 19 Alkaline Phosphatase 65 Troponin I 0.01 B-Natriuretic Peptide Total Protein 5.8 L Albumin 3.6 Globulin 2.2 Albumin/Globulin Ratio 1.6 04/05/19 04/05/19 04/05/19 00:30 00:30 01:15 WBC RBC Hgb Hct MCV MCH MCHC RDW Plt Count MPV Neut % (Auto) Lymph % (Auto) [place] % (Auto) Eos % (Auto) Baso % (Auto) Absolute Neuts (auto) Absolute Lymphs (auto) Absolute Monos (auto) Absolute Eos (auto) Absolute Basos (auto) Absolute Nucleated RBC Nucleated RBC % INR (Anticoag Therapy) Patient Temperature Not Reportable ABG pH 7.24 L ABG pH (Temp Correct) Not Reportable ABG pCO2 60 H ABG pCO2 (Temp Corrct Not Reportable ABG pO2 122 H ABG pO2 (Temp Correct Not Reportable ABG HCO3 22.7 ABG O2 Saturation 99.4 H ABG Base Excess -2.8 L Respiration Rate 14 O2 Delivery Device vent Ventilator Type 400 Vent Mode Cmv FiO2 30 Inspiratory Time 0.85 PEEP 5 Pressure Support Not Reportable Pressure Control Not Reportable EPAP Not Reportable IPAP Not Reportable BiPAP Not Reportable Sodium Potassium Chloride Carbon Dioxide Anion Gap BUN Creatinine Est GFR ( Amer) Est GFR (Non-Af Amer) BUN/Creatinine Ratio Glucose Lactic Acid 1.9 Calcium Total Bilirubin AST ALT Alkaline Phosphatase Troponin I B-Natriuretic Peptide 105 H Total Protein Albumin Globulin Albumin/Globulin Ratio 04/05/19 04/05/19 04/05/19 01:42 04:03 04:35 WBC 8.3 RBC 4.46 Hgb 14.6 Hct 44 MCV 98 H MCH 33 H MCHC 34 RDW 14 Plt Count 211 MPV 8.2 Neut % (Auto) 87.7 Lymph % (Auto) 8.5 [place]ck[place] % (Auto) 2.8 Eos % (Auto) 0.4 Baso % (Auto) 0.6 Absolute Neuts (auto) 7.2 Absolute Lymphs (auto) 0.7 L Absolute Monos (auto) 0.2 Absolute Eos (auto) 0.0 Absolute Basos (auto) 0.0 Absolute Nucleated RBC 0.0 Nucleated RBC % 0.0 INR (Anticoag Therapy) Patient Temperature 35.5 c ABG pH 7.34 L ABG pH (Temp Correct) Not Reportable ABG pCO2 50 H ABG pCO2 (Temp Corrct Not Reportable ABG pO2 109 H ABG pO2 (Temp Correct Not Reportable ABG HCO3 25.3 ABG O2 Saturation 100.0 H ABG Base Excess 0.5 Respiration Rate Not Reportable O2 Delivery Device vent Ventilator Type Not Reportable Vent Mode Not Reportable FiO2 30 Inspiratory Time Not Reportable PEEP Not Reportable Pressure Support Not Reportable Pressure Control Not Reportable EPAP Not Reportable IPAP Not Reportable BiPAP Not Reportable Sodium Potassium TNP Chloride Carbon Dioxide Anion Gap BUN Creatinine Est GFR ( Amer) Est GFR (Non-Af Amer) BUN/Creatinine Ratio Glucose Lactic Acid Calcium Total Bilirubin AST TNP ALT Alkaline Phosphatase Troponin I B-Natriuretic Peptide Total Protein Albumin Globulin Albumin/Globulin Ratio 04/05/19 04:35 WBC RBC Hgb Hct MCV MCH MCHC RDW Plt Count MPV Neut % (Auto) Lymph % (Auto) [place] % (Auto) Eos % (Auto) Baso % (Auto) Absolute Neuts (auto) Absolute Lymphs (auto) Absolute Monos (auto) Absolute Eos (auto) Absolute Basos (auto) Absolute Nucleated RBC Nucleated RBC % INR (Anticoag Therapy) Patient Temperature ABG pH ABG pH (Temp Correct) ABG pCO2 ABG pCO2 (Temp Corrct ABG pO2 ABG pO2 (Temp Correct ABG HCO3 ABG O2 Saturation ABG Base Excess Respiration Rate O2 Delivery Device Ventilator Type Vent Mode FiO2 Inspiratory Time PEEP Pressure Support Pressure Control EPAP IPAP BiPAP Sodium 137 Potassium 4.6 Chloride 105 Carbon Dioxide 29 Anion Gap 3 BUN 6 Creatinine 0.83 Est GFR ( Amer) 111.2 Est GFR (Non-Af Amer) 91.9 BUN/Creatinine Ratio 7.2 L Glucose 126 H Lactic Acid Calcium 8.4 L Total Bilirubin 0.40 AST 25 ALT 20 Alkaline Phosphatase 60 Troponin I B-Natriuretic Peptide Total Protein 6.3 L Albumin 3.9 Globulin 2.4 Albumin/Globulin Ratio 1.6 Imaging: CXR 04/05 - ett above lida, hyperinflated, no clear infiltrates/congestion/ptx CT chest 04/05 - no PE, no consolidations/effusions/congestion; emphysematous changes++ EKG 04/05 - nsr with RBBB+ Assessment: 68y M w/pmhx of COPD, Home O2 2L, HTN, HLD, prior alcohol abuse/ tobacco use, Chronic LV systolic dysfunction (LVEF 20%); prior admissions for COPD exaccerbation, last was early March 2019; presented to ER 04/05 after calling EMS for shortness of breath, acute onset. Intubated for hypoxia and unresponsiveness, noted to be hypercapneic in ER. Started on empiric tx with steroids, ceftriaxone for COPD exaccerbation. new RBB, CTA chest performed to rule out PE, demonstrating no acute PE or other pulmonary findings of consolidation/congestion/pneumothorax, but emphysematous changes present. -acute on chronic hypercapneic and hypoxic respiratory failure, intubated/ extubated 04/05 -COPD with acute exaccerbation Plan: Neuro- -on propofol; waking and following commands more so; holding sedation for weaning/extubation -Delirium prec; avoid BDZ CVS- -BP and HR stable -Dec NS to 50cc/hr -making good urine -cont asa -Maintain MAP>65 Resp- -intubated, on 21% fio2 with sats 95% -placed on CPAP, doing well, extubation occurred now 1045 -CXR and CT reviewed; no clear consolidations noted or PE -d/c CTX, cont azithro -cont solumedrol 40mg iv BID for COPD exaccerbation; may need longer taper or even chronic use noting he keeps have exaccerbations -resume symbicort on discharge -cont duoneg q4h prn -Wean Fio2 to keep sat>92% -Bronchodilators PRN, Aspiration prec ID- afebrile, wbc normal. CXR and CT without focla process, no PE. -started empiric CTX and Azithro; d/c CTX. cont azithro (day 1 of 5) GI- -NPO -bedside swallow later today -GI prophylaxis Renal- -making urine; K and lytes okay -dec NS to 50cc/hr -strict I/O, replete to keep K>4, Mg>2 -gabriel as indicated Heme- hg stable, plt stable Endo- Maintain BG<200, insulin protocol as needed. Musculsk- pressure ulcer prophylaxis. Bedrest. Wounds- none Nutrition- NPO DVT prophylaxis: heparin sq, SCDs GI prophylaxis: h2b Central Line: no Arterial Line: no Gabriel Cathetor: no Disposition: Admit to ICU; Expected LOS>2 midnights; Patient requires Critical Care/ICU for respiratory failure req intubation for COPD exaccerbation Patient Clinical Status: guarded Code Status: full code Total Critical Care time is 50 minutes, excluding procedures/teaching Darrion Aviles MD Product Development Engineer (Electronically Signed)
[2019-04-05] MEDS: Carvedilol TAB* 6.25 MG PO SCH (19:47)
[2019-04-06] MEDS ORDERED: cefTRIAXone(*) 1 GM in NS 0.9% 50 ML* 50 ML IVPB SCH (02:00)
[2019-04-06] MEDS: Heparin VIAL(*) 5000 UNITS/ML VIAL (FIVE THOUSAND) SUBCUT SCH (06:18)
[2019-04-06] MEDS: Azithromycin 500 mg/250 ml NS 500 MG/250 ML BAG IVPB SCH (06:18)
[2019-04-06 06:51] LABS: Hematocrit 39 % (42-52); Hemoglobin 13.4 g/dL (14.0-18.0); Mean Corpuscular HGB Conc 34 g/dL (31-36); Mean Corpuscular Hemoglobin 33 pg (27-31); Mean Corpuscular Volume 96 fL (80-94); Mean Platelet Volume 8.7 fL (7.4-10.4); Platelet Count 229 10^3/uL (150-450); Red Blood Count 4.09 10^6 /uL (4.18-5.48); Red Cell Distribution Width 13 % (10-15); White Blood Count 10.4 10^3/uL (3.5-10.8)
[2019-04-06 07:06] LABS: BUN/Creatinine Ratio 16.4 (8-20); Calcium 9.2 mg/dL (8.6-10.3); EGFR African American 128.9 (>60); EGFR Non-African American 106.5 (>60); Phosphorus 3.3 mg/dL (2.5-5.0); Potassium 3.9 mmol/L (3.5-5.0)
[2019-04-06] MEDS: Carvedilol TAB* 6.25 MG PO SCH (08:39)
[2019-04-06] MEDS: methylPREDNISolone SOD 40 MG* 1 ML VIAL IV SCH (08:40)
[2019-04-06] MEDS ORDERED: SPIRIVA Respimat* (tiotropium) 2.5 mcg/inh Inhaler INH SCH (09:00)
[2019-04-06] MEDS ORDERED: Aspirin EC TAB* 81 MG TAB.EC PO SCH (09:00)
[2019-04-06] MEDS ORDERED: Famotidine TAB* 20 MG PO SCH (09:00)
[2019-04-06] MEDS ORDERED: Potassium Chloride* LIQUID 20 MEQ/15 ML UDC PO ONE (10:31)
--- NOTE | 2019-04-06 10:37 | PN ---
Progress Note - Progress Note Date of Service: 04/06/19 Note: Progress Note -- Critical Care 24 hour events -extubated yesterday; remained on NC, no distress, eating. cough+ but chronic. sputum+. no sob/cp -no n/v/diarrhea. appetite okay -states he felt sudden shortness of breath but had no sick contacts, has been doign well since last discharge earlier in march from [facility] [place]stating he wishes to go home -currently on RA, sats 95%, no distress, BP and HR stable Tele: NSR Vitals: Vital Signs Temp 98.9 F 04/06/19 08:00 Pulse 84 04/06/19 10:00 Resp 31 04/06/19 10:00 BP 122/70 04/06/19 10:00 Pulse Ox 95 04/06/19 10:00 Intake & Output 04/05/19 04/06/19 04/06/19 18:59 06:59 18:59 Intake Total 930 600 250 Output Total 1265 925 350 Balance -335 -325 -100 Weight 60.328 kg Intake: IV Fluids 700 NS (0.9%) 700 Medicated IV 80 propofol 80 Oral 150 600 250 Output: Urine 200 925 350 Gabriel 1065 Other: Estimated Void Large # Voids 1 O2/Vent: RA Infusions: heplock Current Medications: Albuterol/Ipratropium (Duoneb (Albuterol 2.5 Mg/Ipratropium 0.5 Mg)) 1 neb INH Q4H PRN PRN Reason: SOB/WHEEZING Last Admin: 04/05/19 15:30 Dose: 1 neb Aspirin (Aspirin Ec Tab*) 81 mg PO DAILY [facility] Last Admin: 04/06/19 08:39 Dose: 81 mg Carvedilol (Coreg Tab*) 6.25 mg PO BID [facility] Last Admin: 04/06/19 08:39 Dose: 6.25 mg Famotidine (Pepcid Tab*) 20 mg PO DAILY [facility] Last Admin: 04/06/19 08:39 Dose: 20 mg Azithromycin (Zithromax 500 Mg/250 Ml) 500 mg in 250 mls @ 250 mls/hr IVPB Q24H [facility] Last Admin: 04/06/19 06:18 Dose: 250 mls/hr Methylprednisolone Sodium Succinate (Solu-Medrol 40 Mg) 40 mg IV 0800,1999 [facility] Last Admin: 04/06/19 08:40 Dose: 40 mg Tiotropium [place] (Spiriva Respimat 2.5 Mcg) 2 puff INH DAILY [facility] Last Admin: 04/06/19 09:43 Dose: 2 puff Physical Exam: Constitutional: awake, alert, no distress, no diaphoresis Head: normocephalic, atraumatic Eyes: no pallor, no icterus ENT: moist mucous membranes Neck: soft, supple, no jvd CVS: normal rate, regular, no murmur Chest/Resp: bilateral air entry, distant breath sounds+, no rhales, no wheeze, no rhonchi, no acc muscle use Abdomen/GI: soft, nontender, nondistended, BS+ Ext/Msk: warm, pulses+, no edema Skin: intact, warm Neuro: awake, alert, oriented x3, moving all ext, no focal deficit appreciated Psych: normal affect Labs: Laboratory Results - last 24 hr 04/06/19 04/06/19 06:27 06:27 WBC 10.4 RBC 4.09 L Hgb 13.4 L Hct 39 L MCV 96 H MCH 33 H MCHC 34 RDW 13 Plt Count 229 MPV 8.7 Sodium 140 Potassium 3.9 Chloride 104 Carbon Dioxide 29 Anion Gap 7 BUN 12 Creatinine 0.73 Est GFR ( Amer) 128.9 Est GFR (Non-Af Amer) 106.5 BUN/Creatinine Ratio 16.4 Glucose 136 H Calcium 9.2 Phosphorus 3.3 Magnesium 2.0 Imaging: CXR 04/05 - ett above lida, hyperinflated, no clear infiltrates/congestion/ptx CTA chest 04/05 - no PE, no consolidations/effusions/congestion; emphysematous changes++ EKG 04/05 - nsr with RBBB+ Assessment: 68y M w/pmhx of COPD, Home O2 2L, HTN, HLD, prior alcohol abuse/ tobacco use, Chronic LV systolic dysfunction (LVEF 20%); prior admissions for COPD exaccerbation, last was early March 2019; presented to ER 04/05 after calling EMS for shortness of breath, acute onset. Intubated for hypoxia and unresponsiveness, noted to be hypercapneic in ER. Started on empiric tx with steroids, ceftriaxone for COPD exaccerbation. new RBB, CTA chest performed to rule out PE, demonstrating no acute PE or other pulmonary findings of consolidation/congestion/pneumothorax, but emphysematous changes present. -acute on chronic hypercapneic and hypoxic respiratory failure, intubated/ extubated 04/05 -COPD with acute exaccerbation Plan: Neuro- -alert, stable -Delirium prec; avoid BDZ CVS- -BP and HR stable -making urine; off IVF -cont asa; cont coreg bid; plan to resume statin on discharge -Maintain MAP>65 Resp- -on RA now; no distress; no wheezing/rhonchi -cough+, sputum+; chronic -CXR and CT reviewed; no clear consolidations noted or PE -cont solumedrol 40mg iv BID for COPD exaccerbation; plan for home taper -cont ymbicort on discharge -cont duoneb q4h prn -Wean Fio2 to keep sat>92% -Bronchodilators PRN, Aspiration prec ID- afebrile, wbc normal. CXR and CT without focla process, no PE. -cont azithro (day 2 of 5) GI- -cardiac diet -GI prophylaxis - h2b Renal- -making urine; K and lytes okay -strict I/O, replete to keep K>4, Mg>2 -gabriel as indicated Heme- hg stable, plt stable Endo- Maintain BG<200, insulin protocol as needed. Musculsk- pressure ulcer prophylaxis. ambulate as tolerated with assitance today. Wounds- none Nutrition- cardiac diet DVT prophylaxis: heparin sq d/c'ed, SCDs GI prophylaxis: h2b Central Line: no Arterial Line: no Gabriel Cathetor: no Disposition: stable for transfer to medical floor; if ambulating and stable by afternoon may be possible discharge home later today Patient Clinical Status: stable, improved Code Status: full code Darrion Aviles MD Accounts Collector (Electronically Signed)
--- NOTE | 2019-04-06 13:28 | DS ---
Discharge Summary Patient Name: Azael Gonzalez Date of Admission: 04/05/2019 Date of Discharge: 04/06/2019 Attending: Dr Darrion Aviles (Paper Mill Manager) Consultants: - Admitting Diagnoses: 1- COPD with Acute Exaccerbation 2- Acute on chronic hypercapnic and hypoxic respiratory failure Discharge Diagnoses: 1- COPD with Acute Exaccerbation 2- Acute on chronic hypercapnic and hypoxic respiratory failure HPI/Hospital Course: 68y M w/pmhx of COPD, Night Home O2 2L, HTN, HLD, prior alcohol abuse/tobacco use, Chronic LV systolic dysfunction (LVEF 20%); prior admissions for COPD exaccerbation, last was early March 2019; presented to ER 04/05 after calling EMS for shortness of breath, acute onset. On EMS arrival, he was hypoxic to 60s , then during transport became less responsive. He was intubated in field by EMS. In ER he was given steroids, ceftriaxone empirically for COPD exaccerbation. He was afebrile, BP and HR stable, no signs of sepsis noted. ABG demonstrated acute hypercapnea with respiratory acidosis. EKG noted a new RBBB pattern and so a CTA chest performed to rule out PE, demonstrating no acute PE or other pulmonary findings of consolidation/congestion/pneumothorax, but emphysematous changes present. He was extubated on 04/05 to Nasal Canula. Since 04/05 he has been doing well, alert, awake, no distress, saturating 95% on RA, afebrile, with a stable Heart rate and BP, no evidence of arrythmias, relatively euvolemic. He ambulated today with assistance around the ICU without distress. There is no clear evidence of infection and so antibiotics were de- escalated to azithromycin for a short 3-5 days coverage as well as tapering of steroids. I discussed with the patient and he was very eager to go home. He has a followup appoint with Dr Mott in 4-5 weeks and was recently seen by her. I advised a pulmonary evaluation for his COPD so that he may be optimized further , maybe even requiring chronic intermittent steroids if exaccerbations appear to occur more frequently. He would require a referral from outpatient medicine to pulmonary. We discussed that he would be sent home on a 10 day taper of steroids. Procedures/Imagin- Computer Tomography and Angiography of Chest 2- Chest Xray Laboratory/Data: see chart Discharge Medications: -Continue Home medications as prior Spiriva inh daily, Advair 500-50 1 puff bid , albuterol neb q6h PRN, carvedilol 6.25mg po bid, crestor 40mg po daily -New Medications - Azithromycin 250mg PO daily x 3 days, Prednisone Taper, Famotidine 20mg po bid x 15 days while on steroids Diet: Cardiac Diet, low 2gm Na Activity: as tolerated Condition upon discharge: improved Disposition: discharge home Code Status: full code Recommendations/followup: followup with PCP, Dr Miryam Mott, at end of April /Early May; Recommend referral to literature teacher for further evaluation/ management of COPD. Total Discharge time 35 minutes Darrion Aviles MD [employer] Manager (Electronically Signed)
[2019-04-06 15:01] VITALS: BP 143/72
== END 2019-04-06 15:41 | disposition home or self-care (01) | DRG 208 ==
LOC: ED 00:24 → ICU 02:32
PROVIDERS: ADMIT Internal Medicine; ATTEND Internal Medicine Critical Care Medicine
PROC: 5A1935Z Respiratory Ventilation, Less than 24 Consecutive Hours (ICD-10-PCS; principal; 2019-04-05)
DX: J44.1 Chronic obstructive pulmonary disease with (acute) exacerbation (principal); J96.22 Acute and chronic respiratory failure with hypercapnia; J96.21 Acute and chronic respiratory failure with hypoxia; I50.22 Chronic systolic (congestive) heart failure; E87.2 Acidosis; I42.9 Cardiomyopathy, unspecified; I11.0 Hypertensive heart disease with heart failure; Z99.81 Dependence on supplemental oxygen; E78.5 Hyperlipidemia, unspecified; I45.10 Unspecified right bundle-branch block; F10.11 Alcohol abuse, in remission; Z87.891 Personal history of nicotine dependence; Z88.5 Allergy status to narcotic agent; Z88.0 Allergy status to penicillin
CPT/HCPCS: 36415; 36600; 71045; 71275; 80048; 80053; 82803; 83605; 83735; 83880; 84100; 84484; 85025; 85027; 85610; 87040; 87641; 93005; 94640; 96361; 96365; 99283; A9270-GY; J0456; J0696; J1644; J2704; J2920; J2930; J3535; Q9967